=== PATIENT | female | born 1995 | race Caucasian/White ===

== ENCOUNTER 2021-11-07 13:18 | Emergency (ER) | payer MEDICAID, SELFPAY ==
[2021-11-07 13:19] VITALS: BP 138/118; PULSE 57; RESP 14; TEMP 36.6; O2SAT 99; BMI 36.2
--- NOTE | 2021-11-07 13:36 | CT_ITS ---
STUDY: CT ABDOMEN AND PELVIS WITH CONTRAST REASON FOR EXAM: Female, 26 years old. abd pain -- IV PO Contrast RADIATION DOSAGE (If Supplied By Facility): CTDIvol = ( 14.99 ) mGy, DLP = ( 1224.95 ) mGycm TECHNIQUE: Transaxial images were obtained from the dome of the diaphragm to the symphysis pubis without oral contrast. Oral and amp; IV Gastrografin and amp; 100mL Isovue-370 was administered. Sagittal and coronal images were reconstructed. Individualized dose optimization techniques were used for this CT. COMPARISON: None. FINDINGS: Lung bases clear. Unremarkable liver, pancreas, adrenals, and bilateral kidneys. Enlarged spleen measuring 15.3 cm in the greatest dimension. Status post cholecystectomy. Normal appendix. Moderate to large amount of retained stool in the distal colon and rectum with no evidence of bowel obstruction. No free air or free fluid. No adenopathy. Intact abdominal aorta and its major branches. Sections through the pelvis demonstrate apparent circumferential wall thickening of the incompletely distended urinary bladder. No definite adnexal mass. Questionable small ill-defined uterine fibroids. No acute osseous abnormality is seen. CT/Abdomen/Pelvis WITH Contrast IMPRESSION: Apparent circumferential wall thickening of the urinary bladder, likely due to incomplete distention. Acute infectious/inflammatory cystitis or infiltrative processes cannot be excluded. Normal appendix. No evidence of bowel obstruction. Status post cholecystectomy. No biliary dilatation. Electronically Signed: Ted Tyson MD at 15:54 EST Tel , Service support ,
[2021-11-07] MEDS: 0.9% Normal Saline 1,000 ML 1000 ML IV (14:13)
[2021-11-07] MEDS: Morphine 4 MG/ML Syringe IV (14:13)
[2021-11-07] MEDS: Ondansetron 4 MG/2 ML Vial IV (14:14)
[2021-11-07 14:24] LABS: Absolute Lymphocyte Count 2.85 X10^3/uL (0.83-4.51); Absolute Neutrophil Count 5.6 X10^3/uL (2.0-7.7); Basophil# 0.05 X10^3/uL; Basophil% 0.6 % (0-1); Eosinophil# 0.27 X10^3/uL; Hematocrit 43.1 % (37-47); Hemoglobin 14.6 g/dL (12.0-15.0); Lymphocyte # 2.85 X10^3/ul (0.83-4.51); Lymphocyte % 31.4 % (19-41); Mean Corp Hgb Conc 33.9 g/dL (32-36); Mean Corpuscular Hgb 29.8 pg (27.0-32.0); Mean Platelet Vol. 11.3 fl (6.2-12.0); Monocyte# 0.32 X10^3/uL; Monocyte% 3.5 % (0-10); NRBC Flagged by Analyzer 0 % (0-5); Neutrophil # 5.56 X10^3/uL (2.7-7.7); Neutrophil % 61.2 % (47-70); Platelet Count 324 K/mm3 (150-450); RBC Distribution Width CV 12.7 % (11.6-14.6); White Blood Count 9.1 K/mm3 (4.4-11.0)
[2021-11-07 14:37] LABS: AST(SGOT) 8 U/L (15-37); Alanine Aminotransfer ALT/SGPT 23 U/L (13-56); Albumin, Serum 3.8 g/dL (3.2-5.0); Alkaline Phosphatase 70 U/L (45-117); Anion Gap 7 (5-15); BUN 9 mg/dL (7-18); BUN/Creat Ratio 12.7 RATIO (10-20); Bilirubin, Direct 0.11 mg/dL (0.00-0.30); Calcium,Total 9.4 mg/dL (8.5-10.1); Chloride 105 mmol/L (98-107); Creatinine, Serum 0.71 mg/dL (0.55-1.02); EST Glomerular Filtration Rate 105 mL/min (>60); Est Glom Filt Rate - Afr Amer 127 mL/min (>60); Estimated Creatinine Clearance 116.77 ml/min; Glucose 92 mg/dL (74-106); Lipase 56 U/L (73-393); Potassium 3.9 mmol/L (3.5-5.1); Protein, Total 7.8 g/dL (6.4-8.2); Sodium Level 141 mmol/L (136-145)
[2021-11-07 15:07] LABS: Internal QC Validated? YES +Cl - CLEAR BKGD; Pregnancy, Serum, hCG Quali. NEGATIVE Negative
--- NOTE | 2021-11-07 15:08 | EX.ED.DYSGE1 ---
HPI History of Present Illness Chief Complaint: Abd Pain Informant: patient Onset/Context/Timing Onset: Days (5 days) Context: Gradual Onset Current Severity: Moderate Maximum Severity: Moderate Narrative Narrative: Patient presents with a 5-day history of abdominal pain. She points to the center of her abdomen and states it will sometimes radiate towards the right upper quadrant and then down the right side. She had chills noted on the first day of illness but none since. No measured fever. She denies congestion or cough. PFSH PFS Medical History (Updated 11/07/21 @ 17:[address] Adriana Salcedo MD) [facility] Home Medications dicyclomine 20 mg PO TID PRN #14 tab 11/07/21 [Rx Last Taken Unknown] ondansetron 4 mg PO Q8H PRN #10 tab 11/07/21 [Rx Last Taken Unknown] Allergy/AdvReac Type Severity Reaction Status Date / Time ibuprofen Allergy Anaphylaxis Verified 11/07/21 13:21 Surgical History (Updated 11/07/21 @ 15:[address] Adriana Salcedo MD) H/O tubal ligation Hx of cholecystectomy Social History Smoking Status: Current every day smoker tobacco type: cigarettes ROS ROS ED Constitutional Constitutional ED: Reports chills; Denies fever(s) Eyes Eyes: Denies change in vision ENT ENT ED: Denies sore throat Cardiovascular Cardiovascular: Denies chest pain Respiratory/Chest Respiratory/Chest: Denies cough or dyspnea Gastrointestinal Gastrointestinal: Reports abdominal pain, diarrhea, nausea and vomiting Genitourinary Genitourinary ED: Denies dysuria or hematuria Musculoskeletal Musculoskeletal: Denies back pain Integumentary Denies rash Neurologic Neurologic: Denies headache(s) or weakness Psychiatric Psychiatric: Denies anxiety or depression Allergic/Immunologic Allergic/Immunologic ED: Denies urticaria EXAM Physical Exam Const Vital Signs: 11/07/21 13:19 Temperature 97.9 F Temperature Source Temporal Pulse Rate 57 L Respiratory Rate 14 Blood Pressure 138/118 H Blood Pressure Mean 124 Pulse Ox 99 Oxygen Delivery Method Room Air Positive well nourished and well developed General Appearance ED: well developed HEENT Reports normocephalic and head/scalp atraumatic Eyes PERRL and EOMs intact bilaterally Neck supple Chest Wall inspection of chest normal and palpation of chest normal Resp normal respiratory effort and clear to auscultation bilaterally Cardio regular rate and regular rhythm GI Palpation: soft and tender other (Diffuse abdominal tenderness to palpation. No guarding or rebound. Hypoactive bowel sounds.) Extremity normal to inspection Neuro oriented x3 and no sensory deficits noted Sensorium / Orientation: alert Motor Exam: strength 5/5 throughout Psych mental status grossly normal Skin no rashes or lesions noted MDM MDM MDM Narrative Medical decision making narrative: Patient was given morphine and Zofran for pain. Lab work, urinalysis, CT abdomen pelvis obtained. Lab Data Attestation: I reviewed the patient's lab results. Labs: Laboratory Results - last 24 hr 11/07/21 11/07/21 11/07/21 14:10 14:10 14:10 WBC 9.1 RBC 4.90 Hgb 14.6 Hct 43.1 MCV 88.0 MCH 29.8 MCHC 33.9 RDW Std Deviation 41.0 RDW Coeff of [place] 12.7 Plt Count 324 MPV 11.3 Immature Gran % (Auto) 0.300 Neut % (Auto) 61.2 Lymph % (Auto) 31.4 [place] % (Auto) 3.5 Eos % (Auto) 3.0 Baso % (Auto) 0.6 Absolute Neuts (auto) 5.6 Absolute Lymphs (auto) 2.85 Nucleated RBC % 0 Sodium 141 Potassium 3.9 Chloride 105 Carbon Dioxide 29.0 Anion Gap 7 BUN 9 Creatinine 0.71 Estim Creat Clear Calc 116.77 Est GFR (MDRD) Af Amer 127 Est GFR (MDRD) Non-Af 105 BUN/Creatinine Ratio 12.7 Glucose 92 Calcium 9.4 Total Bilirubin 0.30 Direct Bilirubin 0.11 AST 8 L ALT 23 Alkaline Phosphatase 70 Total Protein 7.8 Albumin 3.8 Globulin 4.0 Lipase 56 L Serum , Qual NEGATIVE Urine Color Urine Clarity Urine pH Ur Specific [place] Urine Protein Urine Glucose (UA) Urine Ketones Urine Occult Blood Urine Nitrite Urine Bilirubin Urine Urobilinogen Ur Leukocyte Esterase Urine RBC Urine WBC Ur Squamous Epith Cells Urine Bacteria Urine Mucus 11/07/21 16:40 WBC RBC Hgb Hct MCV MCH MCHC RDW Std Deviation RDW Coeff of [place] Plt Count MPV Immature Gran % (Auto) Neut % (Auto) Lymph % (Auto) [place] % (Auto) Eos % (Auto) Baso % (Auto) Absolute Neuts (auto) Absolute Lymphs (auto) Nucleated RBC % Sodium Potassium Chloride Carbon Dioxide Anion Gap BUN Creatinine Estim Creat Clear Calc Est GFR (MDRD) Af Amer Est GFR (MDRD) Non-Af BUN/Creatinine Ratio Glucose Calcium Total Bilirubin Direct Bilirubin AST ALT Alkaline Phosphatase Total Protein Albumin Globulin Lipase Serum , Qual Urine Color Yellow Urine Clarity Clear Urine pH 7.0 Ur Specific [place] 1.030 Urine Protein Negative Urine Glucose (UA) Normal Urine Ketones Negative Urine Occult Blood 150 H Urine Nitrite Negative Urine Bilirubin Negative Urine Urobilinogen Normal Ur Leukocyte Esterase Negative Urine RBC 5-10 SEEN Urine WBC 0 SEEN Ur Squamous Epith Cells 0 SEEN Urine Bacteria 0 SEEN Urine Mucus 0 SEEN Radiography Diagnostic Testing: Clinical Impression(s) from Imaging Studies Abdomen/Pelvis CT 11/07/21 13:36 IMPRESSION: Apparent circumferential wall thickening of the urinary bladder, likely due to incomplete distention. Acute infectious/inflammatory cystitis or infiltrative processes cannot be excluded. Normal appendix. No evidence of bowel obstruction. Status post cholecystectomy. No biliary dilatation. Electronically Signed: Ted Tyson MD at 15:54 EST Tel , Service support , Treatment and Re-Evaluation Comments:: On repeat evaluation patient's pain is improved. Lab work is unremarkable. Urinalysis shows mild blood but no sign of infection. She states her period is just ending. CT scan reveals some wall thickening of the bladder, likely due to incomplete distention. Normal appendix is noted. No evidence of bowel obstruction. Test results discussed with the patient. She will be given Bentyl and Zofran for home. Return instructions provided. Discharge Plan Triage Chief Complaint: Abd Pain ED Provider: Adriana Salcedo Dx/Rx/DC Orders Clinical Impression: Abdominal pain Instructions: ED Abdominal Pain Unkn Cause Fem Prescriptions: New dicyclomine 20 mg tablet 20 mg PO TID PRN (Reason: abdominal cramping) Qty: 14 RF: 0 ondansetron 4 mg tablet,disintegrating 4 mg PO Q8H PRN (Reason: nausea and vomiting) Qty: 10 RF: 0 Primary Care Provider: Care Physician,No Primary Referrals: Errol Langston MD [STAFF PHYSICIAN] - 1-2 Weeks Care Physician,No Primary [Primary Care Provider] - Disposition Disposition: Home, Self Care
[2021-11-07 16:45] LABS: Bacteria 0 SEEN /hpf (None Seen); Mucous, Urine 0 SEEN /hpf (<or=2+); Squamous Epithelial Cells - UA 0 SEEN /hpf (5-10); White Blood Cells 0 SEEN /hpf (0-5)
[2021-11-07 16:57] LABS: Color, Urine Yellow (Yellow); Glucose, Dipstick Normal (Normal); Ketone-Dipstick Negative (Negative); Leukocyte Esterase-Dipstick Negative /ul (Negative); Nitrite-Dipstick Negative (Negative); Occult Blood-Urine 150 /ul (Negative); Protein-Dipstick Negative (Negative); Urine Bilirubin Dipstick Negative (Negative); Urine Clarity Clear (Clear); Urine Urobilinogen Normal (Normal)
[2021-11-07 17:05] LABS: Red Blood Cells-Urine 5-10 SEEN /hpf (0-5)
[2021-11-07 17:33] VITALS: PULSE 62; RESP 17; O2SAT 97
== END 2021-11-07 17:34 | disposition home or self-care (01) ==
PROVIDERS: Emergency Provider Emergency Medicine; Visit Provider Emergency Medicine
DX: R10.9 Unspecified abdominal pain (principal); R68.83 Chills (without fever); R11.2 Nausea with vomiting, unspecified; R19.7 Diarrhea, unspecified; Z87.19 Personal history of other diseases of the digestive system; Z90.49 Acquired absence of other specified parts of digestive tract; F17.210 Nicotine dependence, cigarettes, uncomplicated
CPT/HCPCS: 74177; 80048; 80076; 81001; 83690; 84703; 85025; 96361; 96374; 96375; 99283; J7030; Q9967; A4216; J2405

== ENCOUNTER 2021-11-14 09:12 | Day surgery (SDC) | payer MEDICAID, SELFPAY ==
[2021-11-14] VITALS (9 sets, daily range): BP systolic 94–130; BP diastolic 68–93; PULSE 80–123; RESP 16–18; TEMP 36.5–36.7; O2SAT 96–100; BMI 36.0
--- NOTE | 2021-11-14 09:26 | EDS_ITS ---
HPI History of Present Illness Chief Complaint: Other, Pain/Inj Detail of Chief Complaint: Pain, redness, swelling to left breast x2 weeks Informant: patient Narrative Narrative: Patient presents with redness and swelling to left breast for several weeks. Patient was seen at urgent care yesterday and started on antibiotics and referred to general surgery. Patient does not know who she was referred to or what antibiotic she was started on. Patient complains of pain and she has had some fever and chills last week. Patient otherwise has no significant medical history. No history of diabetes. She denies trauma to her breast. [facility] Medical History (Updated 11/14/21 @ 10:[address] Aries Gordon, DO) [facility] Home Medications dicyclomine 20 mg PO TID PRN #14 tab 11/07/21 [Rx Last Taken Unknown] ondansetron 4 mg PO Q8H PRN #10 tab 11/07/21 [Rx Last Taken Unknown] Allergy/AdvReac Type Severity Reaction Status Date / Time ibuprofen Allergy Anaphylaxis Verified 11/14/21 09:15 Surgical History H/O tubal ligation Hx of cholecystectomy Social History Smoking Status: Current every day smoker tobacco type: cigarettes ROS ROS ED ROS Narrative Redness and swelling to left breast Constitutional Constitutional ED: Reports systems reviewed and no addt'l complaints, except as documented, chills and fever(s); Denies body ache(s) or change in weight Eyes Eyes: Denies acute decrease in peripheral vision, change in vision, double vision or loss of vision ENT ENT ED: Reports none; Denies ear pain, lip swelling, loss taste/smell, neck pain, otalgia or sore throat Cardiovascular Cardiovascular: Reports none; Denies abdominal pain, chest pain with activity, leg edema, lightheadedness, palpitations, rapid heart rate or syncope Respiratory/Chest Respiratory/Chest: Reports none; Denies change in mental status, dry cough, dyspnea, hemoptysis, shortness of breath at rest or shortness of breath with exertion Gastrointestinal Gastrointestinal: Reports none; Denies abdominal pain, change in stool character, diarrhea, hematemesis, hematochezia, melena, rectal bleeding or vomiting Genitourinary Genitourinary ED: Reports none; Denies abdominal discomfort, anuria, dysuria, genital pain or polyuria Musculoskeletal Musculoskeletal: Reports none; Denies arthralgias, back pain, difficulty walking, extremity pain, muscle weakness or myalgias Integumentary Reports none; Denies abscess or rash Neurologic Neurologic: Reports none; Denies abnormal gait, confusion, focal weakness, frequent falls, headache(s), loss of vision, numbness, paresthesias, radicular pain, vertigo or weakness Psychiatric Psychiatric: Reports systems reviewed and no addt'l complaints, except as documented and none; Denies behavioral changes, confusion, difficulty concentrating, hallucinations, suicidal ideation, tactile hallucinations or visual hallucinations Endocrine Endocrinology: Denies none, cold intolerance, excessive sweating, fatigue or heat intolerance Hematologic/Lymphatic Hematologic/Lymphatic: Reports none; Denies anemia, easy bleeding or easy bruising Allergic/Immunologic Allergic/Immunologic ED: Denies as per HPI, none, lip swelling, mouth swelling, throat swelling, tongue swelling or hives EXAM Physical Exam Const Vital Signs: 11/14/21 09:13 Temperature 98.0 F Temperature Source Temporal Pulse Rate 123 H Respiratory Rate 16 Blood Pressure 114/79 Blood Pressure Mean 90 Pulse Ox 98 Oxygen Delivery Method Room Air Positive well nourished and well developed General Appearance ED: well developed and NAD HEENT Reports TM's clear and moist mucous membranes normocephalic and atraumatic; Negative for trauma or tenderness Tympanic Membrane ED: Yes TM's clear Eyes PERRL and EOMs intact bilaterally General Eye ED: Negative for pale conjunctiva or scleral icterus Neck no lymphadenopathy, supple and no JVD General: Negative for tenderness Chest Wall inspection of chest normal and palpation of chest normal Chest Narrative: Evaluation of the left breast reveal cellulitic changes diffusely with soft tissue swelling induration and some mild fluctuance to the medial aspect of the areola and nipple. Area is tender to palpation. Chest: Negative for tenderness Resp normal respiratory effort and clear to auscultation bilaterally Effort and Inspection: Negative for respiratory distress or pain with movement Auscultation: Negative for rhonchi, wheezes or diminished lung sounds Cardio regular rate, regular rhythm, S1 normal heart sound, S2 normal heart sound and no murmurs Peripheral Pulses: pulses 2+ throughout GI normal to inspection, nondistended, normoactive bowel sounds, soft to palpation, non-tender, non-distended and no masses Back/Spine no CVA tenderness and no thoracic nor lumbar tenderness Extremity normal to inspection General Extremety ED: Negative for edema General Extremity: Negative for edema Neuro oriented x3, CN's II-XII intact bilaterally, no sensory deficits noted and gait normal Sensorium / Orientation: awake, alert, oriented to person, oriented to place and oriented to time Motor Exam: strength 5/5 throughout and strength abnormal Psych mental status grossly normal Skin no rashes or lesions noted and no wounds MDM MDM MDM Narrative Medical decision making narrative: IV line established on arrival. Patient was given Zosyn IV. Case was discussed with general surgeon on-call Dr. Rueda who will evaluate patient in department. After evaluation Dr. Rueda wanted to take patient to the OR for incision and drainage. Lab Data Attestation: I reviewed the patient's lab results. Labs: Laboratory Results - last 24 hr 11/14/21 11/14/21 11/14/21 09:40 09:40 09:40 WBC 11.0 RBC 4.88 Hgb 14.2 Hct 43.1 MCV 88.3 MCH 29.1 MCHC 32.9 RDW Std Deviation 41.8 RDW Coeff of [place] 12.9 Plt Count 309 MPV 11.2 Immature Gran % (Auto) 0.200 Neut % (Auto) 74.6 H Lymph % (Auto) 19.6 [place] % (Auto) 3.8 Eos % (Auto) 1.4 Baso % (Auto) 0.4 Absolute Neuts (auto) 8.2 H Absolute Lymphs (auto) 2.15 Nucleated RBC % 0 Sodium 139 Potassium 3.8 Chloride 110 H Carbon Dioxide 23.0 Anion Gap 6 BUN 9 Creatinine 0.77 Estim Creat Clear Calc 107.67 Est GFR (MDRD) Af Amer 116 Est GFR (MDRD) Non-Af 96 BUN/Creatinine Ratio 11.7 Glucose 95 Lactic Acid 0.8 Calcium 9.2 Discharge Plan Triage Chief Complaint: Other, Pain/Inj ED Provider: Aries Gordon Dx/Rx/DC Orders Clinical Impression: Abscess of breast, left Prescriptions: No Action dicyclomine 20 mg tablet 20 mg PO TID PRN (Reason: abdominal cramping) Qty: 14 RF: 0 ondansetron 4 mg tablet,disintegrating 4 mg PO Q8H PRN (Reason: nausea and vomiting) Qty: 10 RF: 0 Primary Care Provider: Care Physician,No Primary Referrals: Care Physician,No Primary [Primary Care Provider] - Disposition Disposition: Acute Care Hospital [facility]
[2021-11-14 09:48] LABS: Absolute Lymphocyte Count 2.15 X10^3/uL (0.83-4.51); Absolute Neutrophil Count 8.2 X10^3/uL (2.0-7.7); Basophil# 0.04 X10^3/uL; Basophil% 0.4 % (0-1); Eosinophil# 0.15 X10^3/uL; Eosinophils% 1.4 % (0-5); Hematocrit 43.1 % (37-47); Hemoglobin 14.2 g/dL (12.0-15.0); Lymphocyte # 2.15 X10^3/ul (0.83-4.51); Lymphocyte % 19.6 % (19-41); Mean Corp Hgb Conc 32.9 g/dL (32-36); Mean Corpuscular Hgb 29.1 pg (27.0-32.0); Mean Corpuscular Volume 88.3 fL (81-99); Mean Platelet Vol. 11.2 fl (6.2-12.0); Monocyte# 0.42 X10^3/uL; Monocyte% 3.8 % (0-10); NRBC Flagged by Analyzer 0 % (0-5); Neutrophil # 8.21 X10^3/uL (2.7-7.7); Neutrophil % 74.6 % (47-70); Platelet Count 309 K/mm3 (150-450); RBC Distribution Width CV 12.9 % (11.6-14.6); RBC Distribution Width SD 41.8 fl (35.1-43.9); Red Blood Count 4.88 M/mm3 (4.2-5.4)
[2021-11-14] MEDS: Morphine 4 MG/ML Syringe IV (09:50)
[2021-11-14] MEDS: Ondansetron 4 MG/2 ML Vial IV (09:50)
[2021-11-14 10:00] LABS: Anion Gap 6 (5-15); BUN 9 mg/dL (7-18); BUN/Creat Ratio 11.7 RATIO (10-20); Calcium,Total 9.2 mg/dL (8.5-10.1); Chloride 110 mmol/L (98-107); Creatinine, Serum 0.77 mg/dL (0.55-1.02); EST Glomerular Filtration Rate 96 mL/min (>60); Est Glom Filt Rate - Afr Amer 116 mL/min (>60); Estimated Creatinine Clearance 107.67 ml/min; Glucose 95 mg/dL (74-106); Potassium 3.8 mmol/L (3.5-5.1); Sodium Level 139 mmol/L (136-145)
[2021-11-14 10:15] LABS: Lactic Acid 0.8 mmol/L (0.4-1.9)
--- NOTE | 2021-11-14 10:29 | CON.PCM.SX_ITS ---
Assessment & Plan Assessment/Plan (1) Abscess of breast, left: PLAN: Plan is to perform an incision and drainage of left breast abscess. I have counseled the patient as to the risks of the procedure, including but not limited to: infection, bleeding, injury to any blood vessels/nerves, complications of anesthesia, etc. The patient verbalizes understanding. HPI Consult Data Date of Consult: 11/14/21 HPI Narrative HPI Narrative: FRANCY DEE, is a 26 F who presents with redness and swelling to left breast for several weeks. Patient was seen at urgent care yesterday and started on antibiotics and referred to general surgery. Patient does not know who she was referred to or what antibiotic she was started on. Patient complains of pain and she has had some fever and chills last week. Patient otherwise has no significant medical history. No history of diabetes. She denies trauma to her breast. [facility] Medical History [facility] Home Medications dicyclomine 20 mg PO TID PRN #14 tab 11/07/21 [Rx Last Taken Unknown] ondansetron 4 mg PO Q8H PRN #10 tab 11/07/21 [Rx Last Taken Unknown] Allergy/AdvReac Type Severity Reaction Status Date / Time ibuprofen Allergy Anaphylaxis Verified 11/14/21 09:15 Surgical History H/O tubal ligation Hx of cholecystectomy Social History Smoking Status: Current every day smoker tobacco type: cigarettes ROS Cardiovascular Cardiovascular: Denies chest pain or chest pain at rest Respiratory/Chest Respiratory/Chest: Denies cough or dyspnea Gastrointestinal Gastrointestinal: Denies abdominal pain Physical Exam Const alert and oriented x3 General Appearance: cooperative HEENT normocephalic and head/scalp atraumatic Eyes PERRL and EOMs intact bilaterally Resp clear to auscultation bilaterally Cardio Rate: regular rate Skin Skin Narrative: Significant redness in the left breast. Mostly on the medial aspect exquisitely tender to touch Lab / Micro Data Result Diagrams: 11/14/21 09:40 11/14/21 09:40 Labs: Laboratory Results - last 24 hr 11/14/21 09:40: WBC 11.0, RBC 4.88, Hgb 14.2, Hct 43.1, MCV 88.3, MCH 29.1, MCHC 32.9, RDW Std Deviation 41.8, RDW Coeff of [place] 12.9, Plt Count 309, MPV 11.2, Im mature Gran % (Auto) 0.200, Neut % (Auto) 74.6 H, Lymph % (Auto) 19.6, [place] % (Auto) 3.8, Eos % (Auto) 1.4, Baso % (Auto) 0.4, Absolute Neuts (auto) 8.2 H, Absolute Lymphs (auto) 2.15, Nucleated RBC % 0 11/14/21 09:40: Sodium 139, Potassium 3.8, Chloride 110 H, Carbon Dioxide 23.0, Anion Gap 6, BUN 9, Creatinine 0.77, Estim Creat Clear Calc 107.67, Est GFR (MDRD) Af Amer 116, Est GFR (MDRD) Non-Af 96, BUN/Creatinine Ratio 11.7, Glucose 95, Calcium 9.2 11/14/21 09:40: Lactic Acid 0.8
--- NOTE | 2021-11-14 10:31 | NURSING ---
SURGERY I AND D LEFT BREAST ABSCESS CIARAN
[2021-11-14 10:53] LABS: Internal QC Validated? YES +Cl - CLEAR BKGD; Pregnancy, Serum, hCG Quali. NEGATIVE Negative
[2021-11-14] MEDS: BUPIVACAINE LIPOSOME/PF 20 ML VIAL OPERA.SITE (11:40)
--- NOTE | 2021-11-14 11:54 | PCM.OPRPT ---
Problems Associated Problem List Diagnoses (1) Abscess of breast, left: Report of Operation Date of Procedure: 11/14/21 Pre-Operative Diagnosis: Left breast abscess Post-Operative Diagnosis: Same Surgery/Procedure Performed:: Incision and drainage of left breast abscess Surgeon: Alfie Rueda deicer repairer pneumatic: None Type of Anesthesia: General Anesthesiologist: Simran Rojas Specimen's removed: Left breast tissue Estimated Blood Loss (mL): < 25 cc Description of Procedure: Patient was brought into the operating room. Placed in the supine position. Under excellent general anesthetic left breast was sterilely prepped and draped in usual fashion. Patient had a previous circumareolar incision on the medial aspect I opened this back up and cut out the scar. Her abscess was primarily directly under the nipple areolar complex I opened this up obtain cultures and sensitivity of the area. Irrigated it out he is electrocautery for good pneumostasis. I packed the area with a Betadine soaked 4 x 4. Sterile dressings were applied and the patient tolerated the procedure well. Admit VTE Documentation VTE Present on Admission: No VTE Mechan Device Prophylaxis: SCD's VTE Pharm Prophylaxis ordered?: No Reason prophylaxis not ordered:: Procedure Not Indicated
--- NOTE | 2021-11-14 11:57 | EX.PCM.DISCH ---
Discharge Instructions Procedure General Surgery Diet Discharge Diet: Light diet - advance as tolerated (If you have questions about your diet instructions, please talk to your doctor.) Activity Discharge Activity: May Not Drive (for 1 week or while taking narcotic pain medicine.) May shower in (days): 1 Lifting Restrictions: 10 pounds Dressing / Incision Call your doctor if your incision/area has: Continuous Slow Oozing, Sudden Increased Bleeding, Increased Pain/ Swelling, Increased Redness and Foul Smelling Discharge Call your doctor if you observe: Fever of 101 or Higher Suture Line Care: Avoid Pulling/Pushing and Avoid Pinching/Bending Additional Dressing/Incision Instructions:: Change or remove dressing in 4 days. Leave steri-strips in place for 1 week. Follow Up Care Please Follow Up With: Rosita Reyes PA-C When: Call office to schedule an appointment to be seen in about 10 days. Test Results: Test results from this visit will be discussed in further detail at your follow-up appointment, if applicable. Discharge Plan Admission Attending Provider: Alfie Rueda Primary Care Provider: Care Physician,Celia Primary Discharge Orders/Prescriptions Prescriptions: New oxycodone-acetaminophen [Percocet] 5-325 mg tablet 1 tab PO Q4H PRN (Reason: pain) 5 Days Qty: 20 RF: 0 No Action dicyclomine 20 mg tablet 20 mg PO TID PRN (Reason: abdominal cramping) Qty: 14 RF: 0 ondansetron 4 mg tablet,disintegrating 4 mg PO Q8H PRN (Reason: nausea and vomiting) Qty: 10 RF: 0 Referrals / Follow Up: Care Physician,Celia Primary [Primary Care Provider] - Rosita Reyes PA-C [PHYSICIAN QUILL CLEANING MACHINE OPERATOR] - (Should call tomorrow for a follow-up visit tomorrow for packing removal.) Disposition Discharge Orders: Discharge Patient (Routine); Ordered 11/14/21 Ordered By: Dr. Alfie Rueda
== END 2021-11-14 23:59 | disposition home or self-care (01) ==
LOC: ED 10:27 → SDC 10:29 → AC 10:30
PROVIDERS: Emergency Provider Emergency Medicine; Visit Provider Surgery
PROC: (CPT 19020; principal; 2021-11-14 11:00)
DX: N61.1 Abscess of the breast and nipple (principal); F17.210 Nicotine dependence, cigarettes, uncomplicated
CPT/HCPCS: 19020; 00400; 80048; 83605; 84703; 85025; 87070; 87075; 87077; 87205; 87426; 99284; J7030; A4216; J0330; J2405

== ENCOUNTER 2022-06-23 19:20 | Emergency (ER) | payer MEDICAID, SELFPAY ==
[2022-06-23 19:20] VITALS: BP 142/75; PULSE 89; RESP 16; TEMP 36.7; O2SAT 99; BMI 36.0
[2022-06-23 19:22] VITALS: BP 142/75; PULSE 89; RESP 16; TEMP 36.7; O2SAT 99
[2022-06-23 19:45] LABS: Mucous, Urine 0 SEEN /hpf (<or=2+); White Blood Cells 0 SEEN /hpf (0-5)
[2022-06-23 19:47] LABS: Color, Urine Yellow (Yellow); Glucose, Dipstick Normal (Normal); Ketone-Dipstick Negative (Negative); Leukocyte Esterase-Dipstick Negative /ul (Negative); Nitrite-Dipstick Negative (Negative); Occult Blood-Urine 250 /ul (Negative); Protein-Dipstick 15 mg/dl (Negative); Specific Gravity, Urine 1.015 (1.002-1.030); Urine Bilirubin Dipstick Negative (Negative); Urine Clarity Clear (Clear); Urine Urobilinogen Normal (Normal); Urine pH 6.5 (5.0 - 8.0)
[2022-06-23 19:57] LABS: Red Blood Cells-Urine 5-10 SEEN /hpf (0-5)
[2022-06-23 19:58] LABS: Bacteria 1+ /hpf (None Seen); Squamous Epithelial Cells - UA 0-5 SEEN /hpf (5-10)
--- NOTE | 2022-06-23 20:16 | CT_ITS ---
STUDY: CT Abdomen And Pelvis W/ Contrast Injection 06/23/2022 9:32 PM REASON FOR EXAM: Female, 27 years old. ABDOMINAL PAIN pain TECHNIQUE: Transaxial images were obtained without oral contrast, and withIV 100mL Isovue-370 intravenous contrast. Individualized dose optimization techniques were used for this CT. COMPARISON: 11/07/2021 FINDINGS: The visualized lung bases are unremarkable. The visualized portions of the heart are within normal limits. Unremarkable liver. There are surgical clips in the gallbladder fossa consistent with a prior cholecystectomy. There is mild splenomegaly. Unremarkable pancreas. Unremarkable bilateral adrenal glands. No acute findings of the right kidney. No acute findings of the left kidney. Unremarkable visualized stomach. Unremarkable small intestine. Unremarkable colon. The appendix is visualized and appears unremarkable. There are no acute findings of the abdominal aorta. Unremarkable inferior vena cava. Subcentimeter mesenteric lymph nodes. Unremarkable urinary bladder. Normal visualized uterus. There is a linear heterogeneous density in the vagina. This a tampon. Inguinal lymph nodes. There is an umbilical hernia containing fat. Unremarkable osseous structures. CT/Abdomen/Pelvis W IV Cont ONLY IMPRESSION: (NOT LISTED IN ORDER OF SIGNIFICANCE) There are no acute findings. There is mild splenomegaly. Other findings as above. Electronically Signed: Oleksandr Yanez MD at 21:34 EDT ,
[2022-06-23] MEDS: Ondansetron 4 MG/2 ML Vial IV (20:27)
[2022-06-23] MEDS: Morphine 4 MG/ML Syringe IV (20:27)
[2022-06-23] MEDS: 0.9% Normal Saline 1,000 ML 1000 ML IV (20:27)
[2022-06-23 20:34] LABS: Absolute Lymphocyte Count 1.18 X10^3/uL (0.83-4.51); Absolute Neutrophil Count 3.4 X10^3/uL (2.0-7.7); Basophil# 0.05 X10^3/uL; Eosinophil# 0.15 X10^3/uL; Eosinophils% 2.9 % (0-5); Hematocrit 38.5 % (37-47); Hemoglobin 13.1 g/dL (12.0-15.0); Lymphocyte # 1.18 X10^3/ul (0.83-4.51); Lymphocyte % 22.8 % (19-41); Mean Corpuscular Hgb 30.3 pg (27.0-32.0); Mean Corpuscular Volume 88.9 fL (81-99); Mean Platelet Vol. 11.9 fl (6.2-12.0); Monocyte# 0.35 X10^3/uL; Monocyte% 6.8 % (0-10); NRBC Flagged by Analyzer 0 % (0-5); Neutrophil # 3.42 X10^3/uL (2.7-7.7); Neutrophil % 66.1 % (47-70); Platelet Count 277 K/mm3 (150-450); RBC Distribution Width CV 12.5 % (11.6-14.6); RBC Distribution Width SD 40.8 fl (35.1-43.9); Red Blood Count 4.33 M/mm3 (4.2-5.4); White Blood Count 5.2 K/mm3 (4.4-11.0)
--- NOTE | 2022-06-23 20:36 | EDS_ITS ---
HPI HPI - GI History of Present Illness Chief Complaint: Abd Pain Informant: patient Narrative Narrative: Patient presents with primary complaint of epigastric pain going on for about 6 days. She sometimes belches and gets a sour taste in her mouth. But she denies chest pain. She states she does have GERD but does not take anything for it. She does not know if she has had symptoms like this. She also denied ever having any surgeries. When I looked at her abdomen I asked what her scars were for and found out that they were for prior cholecystectomy and tubal ligation. She states they took out gallstones but did not take her gallbladder but she is not sure. She is not sure when she had the surgery. She denies fevers and chills. She has had some nausea but no vomiting. Bowel habits have been normal. Urine is normal for her. She states she never fully empties her bladder but that is just because she works all the time and she is in a hurry. There is no dysuria or change in color or odor. The symptoms are chronic and unchanged. She is on her menstrual cycle today and it started normal timing. She has no pelvic pain. No back pain. Nothing consistently makes her pain better and worse but she thinks eating might bother it a little bit. [facility] Medical History [place] Home Medications esomeprazole magnesium 20 mg capsule,delayed release (Nexium) 20 mg PO DAILY #30 caps 06/23/22 [Rx Last Taken Unknown] ondansetron 4 mg disintegrating tablet 4 mg PO Q8H PRN nausea and vomiting #10 tabs 06/23/22 [Rx Last Taken Unknown] Allergy/AdvReac Type Severity Reaction Status Date / Time ibuprofen Allergy Anaphylaxis Verified 06/23/22 19:22 Surgical History H/O tubal ligation Hx of cholecystectomy Social History Smoking Status: Current every day smoker tobacco type: cigarettes ROS ROS ED Constitutional Constitutional ED: Denies chills, fever(s) or subjective ENT ENT ED: Denies rhinorrhea or sore throat Cardiovascular Cardiovascular: Denies chest pain or palpitations Respiratory/Chest Respiratory/Chest: Denies cough or dyspnea Gastrointestinal Gastrointestinal: Reports abdominal pain, nausea and vomiting; Denies constipation, diarrhea or melena Genitourinary Genitourinary ED: Reports other Details: See history of present illness. ; Denies dysuria, hematuria or urinary frequency Musculoskeletal Musculoskeletal: Denies back pain Integumentary Denies rash Neurologic Neurologic: Denies headache(s), paresthesias or weakness Psychiatric Psychiatric: Denies anxiety Endocrine Endocrinology: Denies polydipsia or polyuria Allergic/Immunologic Allergic/Immunologic ED: Denies urticaria EXAM Physical Exam Const Vital Signs: 06/23/22 19:20 06/23/22 19:22 06/23/22 21:03 Temperature 98.1 F 98.1 F Temperature Source Temporal Temporal Pulse Rate 89 89 Respiratory Rate 16 16 18 Blood Pressure 142/75 H 142/75 H Blood Pressure Mean 97 97 Pulse Ox 99 99 Oxygen Delivery Method Room Air Room Air Room Air Positive well nourished and well developed General Appearance ED: well developed and NAD; Negative for pallor HEENT Reports moist mucous membranes; Denies dry mucous membranes normocephalic Mouth ED: No dry mucous membranes Mouth: No dry mucous membranes Eyes General Eye ED: Negative for pale conjunctiva or scleral icterus Resp normal respiratory effort and clear to auscultation bilaterally Auscultation: Negative for rales, rhonchi or wheezes Cardio regular rate and regular rhythm GI GI Narrative: Abdomen has normal bowel sounds. She is soft. There is mild epigastric tenderness but no rebound or guarding. No hernia in the abdomen. No rashes. Back/Spine no CVA tenderness Extremity full ROM General Extremety ED: Negative for edema or tenderness General Extremity: Negative for edema Neuro Sensorium / Orientation: alert Psych mental status grossly normal Skin no wounds General Skin Exam: Negative for jaundice or pallor MDM MDM MDM Narrative Medical decision making narrative: Patient CBC is normal. Electrolytes liver function test are normal. Urine shows no white cells. No convincing evidence of infection. is negative. CT shows no acute findings. There is mild splenomegaly. Patient has mostly upper abdominal pain. She has a history of GERD. I will write for some PPI medication. I will write for a few Zofran as she has had nausea even though she has not had vomiting. We will refer her to primary physician and we discussed reasons to return. Lab Data Attestation: I reviewed the patient's lab results. Labs: Laboratory Results - last 24 hr 06/23/22 06/23/22 06/23/22 19:35 19:48 19:48 WBC 5.2 RBC 4.33 Hgb 13.1 Hct 38.5 MCV 88.9 MCH 30.3 MCHC 34.0 RDW Std Deviation 40.8 RDW Coeff of [place] 12.5 Plt Count 277 MPV 11.9 Immature Gran % (Auto) 0.400 Neut % (Auto) 66.1 Lymph % (Auto) 22.8 [place] % (Auto) 6.8 Eos % (Auto) 2.9 Baso % (Auto) 1.0 Absolute Neuts (auto) 3.4 Absolute Lymphs (auto) 1.18 Nucleated RBC % 0 Sodium 142 Potassium 3.7 Chloride 107 Carbon Dioxide 28.0 Anion Gap 7 BUN 8 Creatinine 0.78 Estim Creat Clear Calc 105.35 Est GFR (MDRD) Af Amer 114 Est GFR (MDRD) Non-Af 94 BUN/Creatinine Ratio 10.2 Glucose 85 Calcium 9.3 Total Bilirubin 0.30 AST 9 L ALT 22 Alkaline Phosphatase 74 Total Protein 7.5 Albumin 3.6 Globulin 3.9 Albumin/Globulin Ratio 0.9 Serum , Qual Urine Color Yellow Urine Clarity Clear Urine pH 6.5 Ur Specific [place] 1.015 Urine Protein 15 H Urine Glucose (UA) Normal Urine Ketones Negative Urine Occult Blood 250 H Urine Nitrite Negative Urine Bilirubin Negative Urine Urobilinogen Normal Ur Leukocyte Esterase Negative Urine RBC 5-10 SEEN Urine WBC 0 SEEN Ur Squamous Epith Cells 0-5 SEEN Urine Bacteria 1+ Urine Mucus 0 SEEN 06/23/22 19:48 WBC RBC Hgb Hct MCV MCH MCHC RDW Std Deviation RDW Coeff of [place] Plt Count MPV Immature Gran % (Auto) Neut % (Auto) Lymph % (Auto) [place] % (Auto) Eos % (Auto) Baso % (Auto) Absolute Neuts (auto) Absolute Lymphs (auto) Nucleated RBC % Sodium Potassium Chloride Carbon Dioxide Anion Gap BUN Creatinine Estim Creat Clear Calc Est GFR (MDRD) Af Amer Est GFR (MDRD) Non-Af BUN/Creatinine Ratio Glucose Calcium Total Bilirubin AST ALT Alkaline Phosphatase Total Protein Albumin Globulin Albumin/Globulin Ratio Serum , Qual NEGATIVE Urine Color Urine Clarity Urine pH Ur Specific [place] Urine Protein Urine Glucose (UA) Urine Ketones Urine Occult Blood Urine Nitrite Urine Bilirubin Urine Urobilinogen Ur Leukocyte Esterase Urine RBC Urine WBC Ur Squamous Epith Cells Urine Bacteria Urine Mucus Radiography Diagnostic Testing: Clinical Impression(s) from Imaging Studies Abdomen/Pelvis CT 06/23/22 20:16 IMPRESSION: (NOT LISTED IN ORDER OF SIGNIFICANCE) There are no acute findings. There is mild splenomegaly. Other findings as above. Electronically Signed: Oleksandr Yanez MD at 21:34 EDT Reading Location ID and State: [facility] / [place] , Service support , Discharge Plan Triage Chief Complaint: Abd Pain ED Provider: Francisco Lord Dx/Rx/DC Orders Clinical Impression: Abdominal pain, Gastroesophageal reflux disease Instructions: ED Abdominal Pain Unkn Cause Fem Prescriptions: New ondansetron 4 mg tablet,disintegrating 4 mg PO Q8H PRN (Reason: nausea and vomiting) Qty: 10 0RF esomeprazole magnesium [Nexium] 20 mg capsule,delayed release(DR/EC) 20 mg PO DAILY Qty: 30 0RF Primary Care Provider: Care Physician,No Primary Referrals: Terry Zaragoza MD [Med Staff - Active Staff] - 3-5 Days if not improving Care Physician,No Primary [Primary Care Provider] - Disposition Disposition: Home, Self Care
[2022-06-23 20:45] LABS: Internal QC Validated? YES +Cl - CLEAR BKGD; Pregnancy, Serum, hCG Quali. NEGATIVE Negative
[2022-06-23 20:50] LABS: ALB/GLOB Ratio 0.9 RATIO (0.9-2.4); AST(SGOT) 9 U/L (15-37); Alanine Aminotransfer ALT/SGPT 22 U/L (13-56); Albumin, Serum 3.6 g/dL (3.2-5.0); Alkaline Phosphatase 74 U/L (45-117); Anion Gap 7 (5-15); BUN 8 mg/dL (7-18); BUN/Creat Ratio 10.2 RATIO (10-20); Calcium,Total 9.3 mg/dL (8.5-10.1); Chloride 107 mmol/L (98-107); Creatinine, Serum 0.78 mg/dL (0.55-1.02); EST Glomerular Filtration Rate 94 mL/min (>60); Est Glom Filt Rate - Afr Amer 114 mL/min (>60); Estimated Creatinine Clearance 105.35 ml/min; Globulin 3.9 g/dL (2.2-4.2); Glucose 85 mg/dL (74-106); Potassium 3.7 mmol/L (3.5-5.1); Protein, Total 7.5 g/dL (6.4-8.2); Sodium Level 142 mmol/L (136-145)
[2022-06-23 21:03] VITALS: RESP 18
[2022-06-23 22:34] VITALS: BP 140/68; PULSE 70; RESP 18; O2SAT 98
== END 2022-06-23 22:35 | disposition home or self-care (01) ==
PROVIDERS: Emergency Provider Emergency Medicine; Visit Provider Emergency Medicine
DX: K21.9 Gastro-esophageal reflux disease without esophagitis (principal); R10.9 Unspecified abdominal pain; R16.1 Splenomegaly, not elsewhere classified; F17.210 Nicotine dependence, cigarettes, uncomplicated; Z90.49 Acquired absence of other specified parts of digestive tract
CPT/HCPCS: 74177; 80053; 81001; 84703; 85025; 96361; 96374; 96375; 99283; J7030; Q9967; A4216; J2405; J3490

== ENCOUNTER 2022-10-04 16:51 | Emergency (ER) | payer MEDICAID, SELFPAY ==
[2022-10-04 16:52] VITALS: BP 130/88; PULSE 97; RESP 16; TEMP 36.7; O2SAT 98; BMI 37.9
--- NOTE | 2022-10-04 17:16 | CT_ITS ---
EXAM: CT ABDOMEN AND PELVIS WITH INTRAVENOUS CONTRAST CLINICAL INDICATION: abdominal pain TECHNIQUE: Helically acquired images were obtained of the abdomen and pelvis with intravenous contrast. This CT exam was performed using one or more of the following dose reduction techniques: automated exposure control, adjustment of the mA and/or kV according to patient size, and/or use of iterative reconstruction technique. This report was created using [employer] report generation technology. CONTRAST: IV 100mL Isovue-300 COMPARISON: 06/23/2022. FINDINGS: LOWER THORAX: Unremarkable. Lung bases are clear. No cardiomegaly. No significant pericardial effusion. ABDOMEN: LIVER: Unremarkable. Homogeneous. No focal mass. GALLBLADDER AND BILE DUCTS: Gallbladder is surgically absent. No intra- or extrahepatic biliary ductal dilation. PANCREAS: Unremarkable. No focal cystic or solid mass. SPLEEN: Unremarkable. Normal size without focal cystic or solid mass. ADRENALS: Unremarkable. No nodules. KIDNEYS AND URETERS: Unremarkable. Normal renal size and position. No hydronephrosis. STOMACH AND BOWEL: Unremarkable. No stomach or bowel distention. No focal inflammatory change. PELVIS: APPENDIX: Normal appendix. BLADDER: Unremarkable. REPRODUCTIVE: Unremarkable as visualized. No mass. ABDOMEN and PELVIS: INTRAPERITONEAL SPACE: Unremarkable. No ascites or other fluid collection. No free air. BONES/JOINTS: Unremarkable. No suspicious lytic or blastic abnormality. SOFT TISSUES: Unremarkable. No discrete abdominal or pelvic wall hernia. VASCULATURE: Unremarkable. Abdominal aorta is normal in caliber. LYMPH NODES: Shotty adenopathy in the right lower quadrant. CT/Abdomen/Pelvis W IV Cont ONLY IMPRESSION: Shotty right lower quadrant adenopathy. Consider lymphadenitis. Otherwise negative study. Electronically Signed: Lori Lr MD at 18:47 EST Reading Location ID and State: [id number] / Tel , Service support ,
--- NOTE | 2022-10-04 17:20 | EDS_ITS ---
HPI <MEGHANA Wood - Last Filed: 10/04/22 21:57> History of Present Illness Chief Complaint: Nausea/Vomiting Narrative Narrative: Patient presents today with abdominal pain that she has had for the past week. She states the pain starts near her bellybutton and then radiates to the right lower quadrant. Sometimes she has the pain in her upper left abdomen that radiates to the left side in her back. Patient states she has been having normal bowel movements. She has had a few episodes of vomiting throughout the past week. Patient denies diarrhea, fever, blood in the stool, and hematemesis. Prior abdominal surgeries include a cholecystectomy. PFSH <MEGHANA Wood - Last Filed: 10/04/22 21:57> PFS Medical History [facility] Home Medications esomeprazole magnesium 20 mg capsule,delayed release (Nexium) 20 mg PO DAILY #30 caps 06/23/22 [Rx Last Taken Unknown] ondansetron 4 mg disintegrating tablet 4 mg PO Q8H PRN nausea and vomiting #10 tabs 06/23/22 [Rx Last Taken Unknown] hydrocodone-acetaminophen 5-325mg 5mg-325mg 1 tab PO Q6H PRN pain 3 days #10 tabs 10/04/22 [Rx Last Taken Unknown] ondansetron 4 mg disintegrating tablet 4 mg PO Q8H PRN nausea and vomiting #10 tabs 10/04/22 [Rx Last Taken Unknown] Allergy/AdvReac Type Severity Reaction Status Date / Time ibuprofen Allergy Anaphylaxis Verified 10/04/22 16:52 Surgical History H/O tubal ligation Hx of cholecystectomy Social History Smoking Status: Current every day smoker tobacco type: cigarettes ROS <MEGHANA Wood - Last Filed: 10/04/22 21:57> ROS ED Constitutional Constitutional ED: Denies chills, fever(s) or sweats Eyes Eyes: Denies blurry vision or change in vision ENT ENT ED: Denies rhinorrhea or sore throat Cardiovascular Cardiovascular: Denies chest pain or palpitations Respiratory/Chest Respiratory/Chest: Denies cough, dyspnea or dyspnea on exertion Gastrointestinal Gastrointestinal: Reports abdominal pain, nausea and vomiting; Denies constipation, diarrhea, hematemesis, hematochezia or melena Genitourinary Genitourinary ED: Denies dysuria, hematuria or urinary frequency Musculoskeletal Musculoskeletal: Denies arthralgias, back pain or myalgias Integumentary Denies abscess, Abrasions or rash Neurologic Neurologic: Denies headache(s), paresthesias or weakness Psychiatric Psychiatric: Denies anxiety, depression or suicidal thoughts EXAM <MEGHANA Wood - Last Filed: 10/04/22 21:57> Physical Exam Const Vital Signs: 10/04/22 16:52 10/04/22 19:00 10/04/22 20:00 Temperature 98.0 F 97.9 F 97.8 F Temperature Source Temporal Temporal Pulse Rate 97 78 88 Respiratory Rate 16 16 16 Blood Pressure 130/88 H 134/78 H 128/78 H Blood Pressure Mean 102 96 Pulse Ox 98 98 99 Oxygen Delivery Method Room Air Room Air Positive well developed and obese General Appearance ED: well developed and NAD Nutritional Appearance: obese HEENT atraumatic; Negative for tenderness Eyes PERRL and EOMs intact bilaterally Neck full ROM Chest Wall inspection of chest normal and palpation of chest normal Resp normal respiratory effort and clear to auscultation bilaterally Cardio regular rhythm and no murmurs Rate: regular rate GI non-distended and no masses GI Narrative: Patient has some tenderness to palpation in the right and left lower quadrant. Palpation: soft; Negative for guarding or rebound tenderness present Back/Spine normal to inspection Extremity normal to inspection and full ROM Neuro oriented x3, CN's II-XII intact bilaterally, moves all extremities, no focal motor deficits, no sensory deficits noted and gait normal Sensorium / Orientation: alert <Dr. Aries Gordon DO - Last Filed: 10/04/22 22:40> Physical Exam Const Vital Signs: 10/04/22 16:52 10/04/22 19:00 10/04/22 20:00 Temperature 98.0 F 97.9 F 97.8 F Temperature Source Temporal Temporal Pulse Rate 97 78 88 Respiratory Rate 16 16 16 Blood Pressure 130/88 H 134/78 H 128/78 H Blood Pressure Mean 102 96 Pulse Ox 98 98 99 Oxygen Delivery Method Room Air Room Air MDM <MEGHANA Wood - Last Filed: 10/04/22 21:57> [facility] Narrative Medical decision making narrative: CBC and BMP are unremarkable. CT of the abdomen and pelvis shows right lower quadrant adenopathy, Consider lymphadenitis. Patient was provided pain control as well as Zofran. After these medications patient stated she felt a lot better. Patient has been given a follow-up referral with Dr. Morris in GI. She has been provided pain and nausea control for home. I am comfortable with patient discharging home and patient is comfortable with plan. I have personally performed a face to face assessment of the patient and have reviewed the EDWIN Note. I performed a substantive portion of the visit including all aspects of the following. My nunez findings include: History is [patient presents with abdominal pain off and on for the last year and a half since she had her baby and tubal ligation.? Patient describes intermittent pain that can be right-sided or left-sided.? Patient also describes intermittent diarrhea and alternating constipation.? Patient states she has had pain now for about a week and her mom was worried that she might have appendicitis so she was told to come to the ER to get evaluated.? Patient denies urinary symptoms.? She does not think she is .? She has 4 children at home.? She is has not had any fevers.? Patient denies other complaints.? She has had her gallbladder removed.] Exam is [HEENT-PERRLA, EOMI.? Cranial nerves II through XII grossly intact.? TMs clear.? Mucous membranes moist.? No adenopathy. Cardiovascular-regular rate and rhythm without murmur or ectopy Lungs-clear to auscultation, chest wall stable without crepitus or subcu emphysema Abdomen-mild diffuse tenderness throughout the abdomen.? There is no rebound, rigidity, or peritoneal signs.? No mass palpated Extremities-intact ?4, normal range of motion, normal pulses, atraumatic] Medical Decison Making [patient seen in conjunction with physician corporate administrative assistant.? Lab work-up was unremarkable.? CT abdomen pelvis with contrast was essentially unremarkable there was some question of mesenteric adenitis.? This point discussed results with patient.? Will refer to GI for follow-up.? She will be given a prescription for few [place] for pain.? Etiology of her abdominal pain is unclear.] Other additions or changes: [None] Lab Data Attestation: I reviewed the patient's lab results. Lab results narrative: CBC within normal limits. Anion gap 4. UA shows no acute cystitis. Labs: Laboratory Results - last 24 hr 10/04/22 10/04/22 10/04/22 17:30 17:30 17:30 WBC 10.2 RBC 4.53 Hgb 13.5 Hct 40.8 MCV 90.1 MCH 29.8 MCHC 33.1 RDW Std Deviation 41.2 RDW Coeff of [place] 12.5 Plt Count 296 MPV 11.0 Immature Gran % (Auto) 0.400 Neut % (Auto) 64.5 Lymph % (Auto) 27.1 [place] % (Auto) 3.7 Eos % (Auto) 3.6 Baso % (Auto) 0.7 Absolute Neuts (auto) 6.6 Absolute Lymphs (auto) 2.78 Nucleated RBC % 0 Sodium 141 Potassium 3.6 Chloride 108 H Carbon Dioxide 29.0 Anion Gap 4 L BUN 9 Creatinine 0.64 Estim Creat Clear Calc 128.40 Est GFR (MDRD) Af Amer 144 Est GFR (MDRD) Non-Af 119 BUN/Creatinine Ratio 14.2 Glucose 94 Calcium 9.2 Lipase 91 Urine Color Yellow Urine Clarity Sl. Cloudy Urine pH 8.0 Ur Specific [place] 1.015 Urine Protein Negative Urine Glucose (UA) Normal Urine Ketones Negative Urine Occult Blood Negative Urine Nitrite Negative Urine Bilirubin Negative Urine Urobilinogen Normal Ur Leukocyte Esterase Negative Urine RBC 0 SEEN Urine WBC 0 SEEN Ur Squamous Epith Cells 0-5 SEEN Urine Bacteria RARE Urine Mucus 0 SEEN Urine Test 10/04/22 20:08 WBC RBC Hgb Hct MCV MCH MCHC RDW Std Deviation RDW Coeff of [place] Plt Count MPV Immature Gran % (Auto) Neut % (Auto) Lymph % (Auto) [place] % (Auto) Eos % (Auto) Baso % (Auto) Absolute Neuts (auto) Absolute Lymphs (auto) Nucleated RBC % Sodium Potassium Chloride Carbon Dioxide Anion Gap BUN Creatinine Estim Creat Clear Calc Est GFR (MDRD) Af Amer Est GFR (MDRD) Non-Af BUN/Creatinine Ratio Glucose Calcium Lipase Urine Color Urine Clarity Urine pH Ur Specific [place] Urine Protein Urine Glucose (UA) Urine Ketones Urine Occult Blood Urine Nitrite Urine Bilirubin Urine Urobilinogen Ur Leukocyte Esterase Urine RBC Urine WBC Ur Squamous Epith Cells Urine Bacteria Urine Mucus Urine Test Negative Radiography Diagnostic Testing: Clinical Impression(s) from Imaging Studies Abdomen/Pelvis CT 10/04/22 17:16 IMPRESSION: Shotty right lower quadrant adenopathy. Consider lymphadenitis. Otherwise negative study. Electronically Signed: Lori Lr MD at 18:47 EST Reading Location ID and State: [id number] / Tel , Service support , CT reviewed and I agree with radiologist impressions. This has also been reviewed by attending ED physician. <Dr. Aries Gordon, DO - Last Filed: 10/04/22 22:40> MDM MDM Narrative Medical decision making narrative: I have personally performed a face to face assessment of the patient and have reviewed the EDWIN Note. I performed a substantive portion of the visit including all aspects of the following. My nunez findings include: History is [patient presents with abdominal pain off and on for the last year and a half since she had her baby and tubal ligation. Patient describes intermittent pain that can be right-sided or left-sided. Patient also describes intermittent diarrhea and alternating constipation. Patient states she has had pain now for about a week and her mom was worried that she might have appendicitis so she was told to come to the ER to get evaluated. Patient denies urinary symptoms. She does not think she is . She has 4 children at home. She is has not had any fevers. Patient denies other complaints. She has had her gallbladder removed.] Exam is [HEENT-PERRLA, EOMI. Cranial nerves II through XII grossly intact. TMs clear. Mucous membranes moist. No adenopathy. Cardiovascular-regular rate and rhythm without murmur or ectopy Lungs-clear to auscultation, chest wall stable without crepitus or subcu emphysema Abdomen-mild diffuse tenderness throughout the abdomen. There is no rebound, rigidity, or peritoneal signs. No mass palpated Extremities-intact ?4, normal range of motion, normal pulses, atraumatic] Medical Decison Making [patient seen in conjunction with physician corporate administrative assistant. Lab work-up was unremarkable. CT abdomen pelvis with contrast was essentially unremarkable there was some question of mesenteric adenitis. This point discussed results with patient. Will refer to GI for follow-up. She will be given a prescription for few [place] for pain. Etiology of her abdominal pain is unclear.] Other additions or changes: [None] Lab Data Attestation: I reviewed the patient's lab results. Labs: Laboratory Results - last 24 hr 10/04/22 10/04/22 10/04/22 17:30 17:30 17:30 WBC 10.2 RBC 4.53 Hgb 13.5 Hct 40.8 MCV 90.1 MCH 29.8 MCHC 33.1 RDW Std Deviation 41.2 RDW Coeff of [place] 12.5 Plt Count 296 MPV 11.0 Immature Gran % (Auto) 0.400 Neut % (Auto) 64.5 Lymph % (Auto) 27.1 [place] % (Auto) 3.7 Eos % (Auto) 3.6 Baso % (Auto) 0.7 Absolute Neuts (auto) 6.6 Absolute Lymphs (auto) 2.78 Nucleated RBC % 0 Sodium 141 Potassium 3.6 Chloride 108 H Carbon Dioxide 29.0 Anion Gap 4 L BUN 9 Creatinine 0.64 Estim Creat Clear Calc 128.40 Est GFR (MDRD) Af Amer 144 Est GFR (MDRD) Non-Af 119 BUN/Creatinine Ratio 14.2 Glucose 94 Calcium 9.2 Lipase 91 Urine Color Yellow Urine Clarity Sl. Cloudy Urine pH 8.0 Ur Specific [place] 1.015 Urine Protein Negative Urine Glucose (UA) Normal Urine Ketones Negative Urine Occult Blood Negative Urine Nitrite Negative Urine Bilirubin Negative Urine Urobilinogen Normal Ur Leukocyte Esterase Negative Urine RBC 0 SEEN Urine WBC 0 SEEN Ur Squamous Epith Cells 0-5 SEEN Urine Bacteria RARE Urine Mucus 0 SEEN Urine Test 10/04/22 20:08 WBC RBC Hgb Hct MCV MCH MCHC RDW Std Deviation RDW Coeff of [place] Plt Count MPV Immature Gran % (Auto) Neut % (Auto) Lymph % (Auto) [place] % (Auto) Eos % (Auto) Baso % (Auto) Absolute Neuts (auto) Absolute Lymphs (auto) Nucleated RBC % Sodium Potassium Chloride Carbon Dioxide Anion Gap BUN Creatinine Estim Creat Clear Calc Est GFR (MDRD) Af Amer Est GFR (MDRD) Non-Af BUN/Creatinine Ratio Glucose Calcium Lipase Urine Color Urine Clarity Urine pH Ur Specific [place] Urine Protein Urine Glucose (UA) Urine Ketones Urine Occult Blood Urine Nitrite Urine Bilirubin Urine Urobilinogen Ur Leukocyte Esterase Urine RBC Urine WBC Ur Squamous Epith Cells Urine Bacteria Urine Mucus Urine Test Negative Radiography Diagnostic Testing: Clinical Impression(s) from Imaging Studies Abdomen/Pelvis CT 10/04/22 17:16 IMPRESSION: Shotty right lower quadrant adenopathy. Consider lymphadenitis. Otherwise negative study. Electronically Signed: Lori Lr MD at 18:47 EST Reading Location ID and State: [id number] / Tel , Service support , Discharge Plan Triage Chief Complaint: Nausea/Vomiting ED Midlevel Provider: Kaia Bell ED Provider: Aries Gordon Dx/Rx/DC Orders Clinical Impression: Abdominal pain, Nausea & vomiting Instructions: ED Abdominal Pain Unkn Cause Fem, ED Vomiting (Adult) Prescriptions: New hydrocodone-acetaminophen 5-325 mg tablet 1 tab PO Q6H PRN (Reason: pain) 3 Days Qty: 10 0RF ondansetron 4 mg tablet,disintegrating 4 mg PO Q8H PRN (Reason: nausea and vomiting) Qty: 10 0RF No Action ondansetron 4 mg tablet,disintegrating 4 mg PO Q8H PRN (Reason: nausea and vomiting) Qty: 10 0RF esomeprazole magnesium [Nexium] 20 mg capsule,delayed release(DR/EC) 20 mg PO DAILY Qty: 30 0RF Primary Care Provider: Care Physician,No Primary Referrals: Friend,Chong, DO [Med Staff - Active Staff] - 5-7 Days Care Physician,No Primary [Primary Care Provider] - Activity Restrictions/Additional Instructions: Please follow-up with GI doctor. Please return if symptoms worsen. Stay well- hydrated. Disposition Disposition: Home, Self Care Discharge Date/Time: 10/04/22 20:10
[2022-10-04] MEDS: Ondansetron 4 MG/2 ML Vial IV (17:36)
[2022-10-04 17:38] LABS: Mucous, Urine 0 SEEN /hpf (<or=2+); Red Blood Cells-Urine 0 SEEN /hpf (0-5); White Blood Cells 0 SEEN /hpf (0-5)
[2022-10-04 17:43] LABS: Absolute Lymphocyte Count 2.78 X10^3/uL (0.83-4.51); Absolute Neutrophil Count 6.6 X10^3/uL (2.0-7.7); Basophil# 0.07 X10^3/uL; Basophil% 0.7 % (0-1); Eosinophil# 0.37 X10^3/uL; Eosinophils% 3.6 % (0-5); Hematocrit 40.8 % (37-47); Hemoglobin 13.5 g/dL (12.0-15.0); Lymphocyte # 2.78 X10^3/ul (0.83-4.51); Lymphocyte % 27.1 % (19-41); Mean Corp Hgb Conc 33.1 g/dL (32-36); Mean Corpuscular Hgb 29.8 pg (27.0-32.0); Mean Corpuscular Volume 90.1 fL (81-99); Monocyte# 0.38 X10^3/uL; Monocyte% 3.7 % (0-10); NRBC Flagged by Analyzer 0 % (0-5); Neutrophil % 64.5 % (47-70); Platelet Count 296 K/mm3 (150-450); RBC Distribution Width CV 12.5 % (11.6-14.6); RBC Distribution Width SD 41.2 fl (35.1-43.9); Red Blood Count 4.53 M/mm3 (4.2-5.4); White Blood Count 10.2 K/mm3 (4.4-11.0)
[2022-10-04 17:55] LABS: Color, Urine Yellow (Yellow); Glucose, Dipstick Normal (Normal); Ketone-Dipstick Negative (Negative); Leukocyte Esterase-Dipstick Negative /ul (Negative); Nitrite-Dipstick Negative (Negative); Occult Blood-Urine Negative /ul (Negative); Protein-Dipstick Negative (Negative); Specific Gravity, Urine 1.015 (1.002-1.030); Urine Bilirubin Dipstick Negative (Negative); Urine Clarity Sl. Cloudy (Clear); Urine Urobilinogen Normal (Normal)
[2022-10-04 17:57] LABS: Anion Gap 4 (5-15); BUN 9 mg/dL (7-18); BUN/Creat Ratio 14.2 RATIO (10-20); Calcium,Total 9.2 mg/dL (8.5-10.1); Chloride 108 mmol/L (98-107); Creatinine, Serum 0.64 mg/dL (0.55-1.02); EST Glomerular Filtration Rate 119 mL/min (>60); Est Glom Filt Rate - Afr Amer 144 mL/min (>60); Glucose 94 mg/dL (74-106); Lipase 91 U/L (73-393); Potassium 3.6 mmol/L (3.5-5.1); Sodium Level 141 mmol/L (136-145)
[2022-10-04 18:17] LABS: Bacteria RARE /hpf (None Seen); Squamous Epithelial Cells - UA 0-5 SEEN /hpf (5-10)
[2022-10-04 19:00] VITALS: BP 134/78; PULSE 78; RESP 16; TEMP 36.6; O2SAT 98
[2022-10-04] MEDS: Morphine 4 MG/ML Syringe IV (19:09)
[2022-10-04 20:00] VITALS: BP 128/78; PULSE 88; RESP 16; TEMP 36.6; O2SAT 99
[2022-10-04 20:20] LABS: Internal QC Validated? YES +Cl - CLEAR BKGD; Pregnancy, Urine Negative Negative
== END 2022-10-04 20:10 | disposition home or self-care (01) ==
PROVIDERS: Physician Assistant; Emergency Provider Emergency Medicine; Visit Provider Emergency Medicine
DX: R10.12 Left upper quadrant pain (principal); R11.2 Nausea with vomiting, unspecified; F17.210 Nicotine dependence, cigarettes, uncomplicated; E66.9 Obesity, unspecified
CPT/HCPCS: 74177; 80048; 81001; 81025; 83690; 85025; 96374; 96375; 99283; Q9967; A4216; J2405

== ENCOUNTER 2023-06-25 12:21 | Emergency (ER) | payer MEDICAID, SELFPAY ==
[2023-06-25 12:22] VITALS: BP 116/52; PULSE 93; RESP 22; TEMP 37.2; O2SAT 100; BMI 36.6
--- NOTE | 2023-06-25 12:36 | EDS_ITS ---
HPI HPI - URI History of Present Illness Chief Complaint: Shortness of Breath Narrative Narrative: 28-year-old female who denies significant past medical history presents with 3 weeks worth of upper respiratory infection type symptoms, and bronchitis. She states she feels short of breath sometimes has been coughing up green mucus. She has nasal congestion and rhinorrhea. She has not had any recent fevers or chills but does have body aches. She has tried rboe-spa-kbzapem medications without relief of her symptoms. Essentially she presents to the emergency department because she wants to know if she has COVID. Occasionally she will get pain on the left side of her chest greater than right from coughing. It is sharp and stabbing in nature. ROS ROS ED ROS Narrative Constitutional: No fever, no chills. HEENT: Positive sore throat. No neck pain. No loss of vision. Positive nasal congestion and rhinorrhea. Cardiovascular: Positive chest pain with coughing. No palpitations. No pedal edema. Respiratory: Positive cough, mild shortness of breath. Abdominal: No abdominal pain. No nausea. No vomiting. Genitourinary: No dysuria. No hematuria. Musculoskeletal: No myalgias. No arthralgias. Neurologic: No headaches. No dizziness. No lightheadedness. Skin: No rash. No change in color. Psychiatric: No depression. Mild anxiety. [facility] Medical History [facility] Home Medications prednisone 20 mg tablet 40 mg (2 x 20 mg) PO DAILY 5 days #10 tabs 06/25/23 [Rx Last Taken Unknown] ranitidine HCl 150 mg tablet 150 mg PO DAILY 06/25/23 [History Last Taken Unknow n] Allergy/AdvReac Type Severity Reaction Status Date / Time ibuprofen Allergy Anaphylaxis Verified 06/25/23 12:21 Surgical History H/O tubal ligation Hx of cholecystectomy Social History Smoking Status: Current every day smoker tobacco type: cigarettes EXAM Physical Exam Narrative Exam Narrative: Afebrile. Vital signs noted. HEENT: Normocephalic. Atraumatic. PERRL, EOMI. Neck soft and supple. No point tenderness or step off. Positive nasal congestion and rhinorrhea. Cardiovascular: Regular rate and rhythm. No murmurs, rubs, or gallops appreciated. Respiratory: Mild tachypnea. Lungs clear to auscultation bilaterally. Wet c ough on examination. Gastrointestinal: Abdomen soft, nontender, with normoactive bowel sounds. No rebound or guarding. Neurological: Awake. Alert. Nonfocal, nonlateralizing. Skin: No rash. Normal color. No pallor. Musculoskeletal: No pedal edema. Full range of motion extremities. Const Vital Signs: 06/25/23 12:22 06/25/23 12:59 Temperature 99 F Temperature Source Temporal Pulse Rate 93 Respiratory Rate 22 H Respiratory Effort Normal Non-Labored Respiratory Depth Normal Respiratory Pattern Normal Blood Pressure 116/52 L Blood Pressure Mean 73 Pulse Ox 100 Oxygen Delivery Method Room Air MDM MDM MDM Narrative Medical decision making narrative: Her pulse ox is 100% on room air without evidence of hypoxia. I am not concerned for PE. In the differential diagnosis is viral bronchitis versus pneumonia. I have low suspicion for pneumothorax because the history and physical is not suggestive of that. I will obtain a 1 view chest x-ray and interpreted it. She was given an albuterol inhaler 4 puffs inhaled along with prednisone 60 mg orally. She will be swabbed for COVID and influenza, but she is already outside the window for any antiviral treatment. I reviewed her chest x-ray in 1 view and see no evidence of a consolidation or pneumothorax. I do not feel antibiotics are indicated. Her pulse ox is 100% on room air without evidence of hypoxia. I reviewed the radiology report which confirms my independent interpretation. Upon repeat examination, she states she feels the same. I feel she be discharged safely home with follow-up. She will be given a prednisone burst of 40 mg for the next 5 days and her albuterol inhaler was dispensed to her to use every 4-6 hours as needed, 1 to 2 puffs for shortness of breath. She will also take mspc-jto-[id number] medications as needed. Follow-up with the primary care. Disposition is discharged home in stable condition. Radiography Diagnostic Testing: Clinical Impression(s) from Imaging Studies Chest X-Ray 06/25/23 13:01 IMPRESSION: Normal x-ray examination of the chest. Electronically Signed: Adeel Bueno MD at 13:52 EDT Reading Location ID and State: [address] [place] [address] , Service support , Discharge Plan Triage Chief Complaint: Shortness of Breath ED Provider: Abhi Greenfield Dx/Rx/DC Orders Clinical Impression: Costochondritis, Bronchitis Instructions: ED Bronchitis, No Antibiotic (Adult), ED Chest Wall Pain, Costochondritis Prescriptions: New prednisone 20 mg tablet 40 mg PO DAILY 5 Days Qty: 10 0RF No Action ranitidine HCl 150 mg tablet 150 mg PO DAILY Primary Care Provider: Care Physician,No Primary Referrals: Terry Zaragoza MD [Med Staff - Active Staff] - As soon as possible Care Physician,No Primary [Primary Care Provider] - Activity Restrictions/Additional Instructions: Use the inhaler/albuterol inhaler 1 to 2 puffs every 4-6 hours as needed for shortness of breath. Take rvxe-rcg-wiribca medications for your cough. Start your steroid burst for 5 days tomorrow. Disposition Disposition: Home, Self Care
[2023-06-25] MEDS: predniSONE 20 MG Tablet 60 MG PO (12:58)
--- NOTE | 2023-06-25 13:01 | RAD_ITS ---
STUDY: X-RAY CHEST REASON FOR EXAM: Female, 28 years old. cough, sob TECHNIQUE: Single AP portable view of the chest. COMPARISON: None. FINDINGS: The lungs are clear and expanded. There is no demonstrated pleural abnormality. Normal size heart. Normal mediastinum and kenan. Normal visualized pulmonary arteries. Normal visualized aortic arch and descending thoracic aorta. Normal visualized thoracic spine. Normal visualized ribs, clavicles, and shoulders. There is no demonstrated abnormality of the visualized soft tissue structures of the upper abdomen. RAD/Chest 1 View (Portable) IMPRESSION: Normal x-ray examination of the chest. Electronically Signed: Adeel Bueno MD at 13:52 EDT ,
[2023-06-25] MEDS: Albuterol Sulfate 8 gm Inhaler (60 puffs) 4 PUFF INHALATION (13:54)
[2023-06-25 14:33] VITALS: BP 108/69; PULSE 72; RESP 15; O2SAT 99
== END 2023-06-25 14:33 | disposition home or self-care (01) ==
PROVIDERS: Emergency Provider Emergency Medicine; Visit Provider Emergency Medicine
DX: M94.0 Chondrocostal junction syndrome [Tietze] (principal); J40 Bronchitis, not specified as acute or chronic; F17.210 Nicotine dependence, cigarettes, uncomplicated
CPT/HCPCS: 71045; 87428; 94640; 99283

== ENCOUNTER 2023-09-30 12:10 | Emergency (ER) | payer MEDICAID, SELFPAY ==
[2023-09-30 12:10] VITALS: BP 137/87; PULSE 109; RESP 14; TEMP 36.8; O2SAT 98; BMI 36.6
--- NOTE | 2023-09-30 12:16 | RAD_ITS ---
HISTORY: pain. TECHNIQUE: XR Hand Min 3 Views. COMPARISON: None. FINDINGS: BONES : Impacted fracture of the fifth metacarpal neck with mild angulation and palmar displacement. Mineralization unremarkable. JOINTS: No dislocation. Joint spaces maintained. SOFT TISSUES: Overlying soft tissue swelling. Small calcific densities adjacent to the fourth metacarpal head. RAD/Hand Min 3 Views IMPRESSION: Mildly impacted and displaced fracture of the right fifth metacarpal neck. Electronically Signed: Kristin Varghese MD at 12:57 EST ,
--- NOTE | 2023-09-30 12:24 | EX.ED.UPPERE ---
HPI History of Present Illness HPI Narrative: 28-year-old female, ismao-otpt-rgqlseya, reportedly tripped and fell over her dog lead the other day injuring her right hand. Saw the [facility] urgent care was told she had a fracture of her ring and small finger. Was placed in a prefabricated splint. Is scheduled to follow-up with orthopedics at the [facility] in [place] on 1220. Patient is looking for something for pain. Chief Complaint: Upper Extremity Injury Informant: patient Occured/Mechanism Mechanism/Context: Yes injury and Yes blunt trauma Onset/Context/Timing Onset: Days Context: Sudden Onset Timing: Continuous Quality of Pain: Dull and Aching Current Severity: Moderate Maximum Severity: Moderate Associated Symptoms Associated Symptoms: Negative for Parasthesia, Weakness or Loss of Funtion Narrative Narrative: 8-year-old female tczsd-[id number]-[id number] reportedly tripped and fell injuring her right small and ring finger at the MCP. Prior similar symptoms: No Recent Illness/Hospitalization: No PFSH PFSH Medical History [facility] Home Medications prednisone 20 mg tablet 40 mg (2 x 20 mg) PO DAILY 5 days #10 tabs 06/25/23 [Rx Last Taken Unknown] ranitidine HCl 150 mg tablet 150 mg PO DAILY 06/25/23 [History Last Taken Unknown] hydrocodone-acetaminophen 5-325mg 5mg-325mg 1 tab PO Q4H PRN PRN Pain 4 days #10 TABLETS 09/30/23 [Rx Last Taken Unknown] Allergy/AdvReac Type Severity Reaction Status Date / Time ibuprofen Allergy Anaphylaxis Verified 09/30/23 12:10 Surgical History H/O tubal ligation Hx of cholecystectomy Social History Smoking Status: Current every day smoker tobacco type: cigarettes ROS ROS ED Eyes Eyes: Denies blurry vision ENT ENT ED: Denies ear pain Cardiovascular Cardiovascular: Denies chest pain Respiratory/Chest Respiratory/Chest: Denies cough or dyspnea Gastrointestinal Gastrointestinal: Denies abdominal pain Genitourinary Genitourinary ED: Denies dysuria or hematuria Musculoskeletal Musculoskeletal: Denies back pain, myalgias or neck pain Integumentary Denies abscess, Abrasions or rash Neurologic Neurologic: Denies headache(s) Psychiatric Psychiatric: Denies anxiety or depression Endocrine Endocrinology: Denies cold intolerance Hematologic/Lymphatic Hematologic/Lymphatic: Denies easy bleeding or easy bruising Allergic/Immunologic Allergic/Immunologic ED: Denies mouth swelling, tongue swelling or urticaria EXAM Physical Exam Narrative Exam Narrative: 28-year-old female no acute distress. Vital signs stable afebrile. H EENT exam unremarkable atraumatic. Neck nontender. Lungs clear to auscultation. Heart regular rate and rhythm rate about 100 no murmur. Chest wall and ribs nontender. Abdomen soft nontender. Back nontender. Moving all 4 extremities. Right hand removed a prefabricated right hand splint. She is bruising tenderness and mild swelling to the MCP of the right small and ring finger. Tender to palpation. She is able to do full extension. Limited flexion due to pain. Decreased sensation in the right small finger. Skins intact. Mild but no extensive swelling. Wrist and forearm are nontender. Const Vital Signs: 09/30/23 12:10 Temperature 98.3 F Temperature Source Temporal Pulse Rate 109 H Respiratory Rate 14 Blood Pressure 137/87 H Blood Pressure Mean 103 Pulse Ox 98 Positive well nourished and well developed; Negative for cachectic, contractures or unkempt General Appearance ED: well developed and NAD; Negative for unkempt, cachectic, contractures, cyanotic or diaphoretic Nutritional Appearance: Negative for cachectic HEENT Reports moist mucous membranes normocephalic and atraumatic; Negative for trauma or tenderness Eyes EOMs intact bilaterally General Eye ED: Negative for other Neck full ROM and supple General: Negative for tenderness Lymph Lymphatic: Negative for other Chest Wall inspection of chest normal and palpation of chest normal Chest: Negative for other Resp normal respiratory effort and clear to auscultation bilaterally Effort and Inspection: Negative for pain with movement Auscultation: Negative for rales, rhonchi or wheezes Cardio regular rate, regular rhythm, S1 normal heart sound, S2 normal heart sound and no murmurs Rate: Negative for bradycardia or tachycardic Rhythm: Negative for abnormal rhythm GI non-tender, non-distended and no masses Inspection: Negative for abdominal distention Auscultation: normoactive bowel sounds Palpation: soft; Negative for tender or guarding Back/Spine no CVA tenderness General Back: Negative for CVA tenderness Cervical Spine: Negative for cervical spine tenderness Thoracic Spine / Upper Back: Negative for thoracic spinal tenderness Lumbar Spine / Lower Back: Negative for lumbar spinal tenderness Extremity Negative for normal to inspection or full ROM Extremity Narrative: Hand tenderness to the right small and ring finger MCP. Swelling. No bruising. Full extension. Limited flexion due to pain. Skin intact. Decreased sensation right small finger. Normal cap refill. General Extremety ED: Yes edema General Extremity: edema Neuro oriented x3, CN's II-XII intact bilaterally, moves all extremities, no focal motor deficits and No no sensory deficits noted Sensorium / Orientation: alert, oriented to person, oriented to place and oriented to time; Negative for orientation impaired, lethargic or stuporous Motor Exam: strength 5/5 throughout Psych mental status grossly normal Appearance: Negative for unkempt Attitude: No agitated Mood & Affect: Negative for depressed, anxious or tearful Skin General Skin Exam: Negative for petechiae Lesions: no lesions Rashes: no rashes Trauma: no lacerations or abrasions MDM MDM MDM Narrative Medical decision making narrative: 28-year-old female [id number]-ohirjmnn with reported fractures of her small and ring finger. X-ray being obtained. Repeat exam unchanged. She will stay in her splint. Follow-up with orthopedics at the [facility] for whom she already has a scheduled appointment. I will write her for 14 [place] for pain. Otherwise ice and elevate. Radiography Diagnostic Testing: Right hand x-ray, 3 views, interpreted by myself shows boxer's fracture or fifth or small finger distal metacarpal fracture with palmar angulation. I do not see any significant fracture of the fourth or ring metacarpal there may be a tiny avulsion calcification. Discharge Plan Triage Chief Complaint: Upper Extremity Injury ED Provider: Samuel Bender Dx/Rx/DC Orders Clinical Impression: Boxer's fracture Instructions: Boxer's Fracture Prescriptions: New hydrocodone-acetaminophen 5-325 mg tablet 1 tab PO Q4H PRN PRN (Reason: Pain) 4 Days Qty: 10 0RF No Action ranitidine HCl 150 mg tablet 150 mg PO DAILY prednisone 20 mg tablet 40 mg PO DAILY 5 Days Qty: 10 0RF Primary Care Provider: Care Physician,No Primary Referrals: Care Physician,No Primary [Primary Care Provider] - Activity Restrictions/Additional Instructions: Ice and elevate your right hand to decrease pain and swelling. Sofi for severe pain. Follow-up with the orthopedic physician at the [facility] with your scheduled appointment October 11. Disposition Disposition: Home, Self Care
== END 2023-09-30 13:19 | disposition home or self-care (01) ==
PROVIDERS: Emergency Provider Emergency Medicine; Referring Provider Emergency Medicine; Visit Provider Emergency Medicine
DX: S62.606A Fracture of unspecified phalanx of right little finger, initial encounter for closed fracture (principal); F17.210 Nicotine dependence, cigarettes, uncomplicated; W01.0XXA Fall on same level from slipping, tripping and stumbling without subsequent striking against object, initial encounter
CPT/HCPCS: 73130; 99282

== ENCOUNTER → 2025-05-02 | Outpatient (CLI) | payer MEDICAID, SELFPAY | END | disposition home or self-care (01) | LOC: LABSPEC 15:09 | DX: H92.12 Otorrhea, left ear (principal) | CPT/HCPCS: 87070; 87075; 87077; 87186; 87205 ==

== ENCOUNTER 2025-05-22 10:25 | Day surgery (SDC) | payer MEDICAID, SELFPAY ==
--- NOTE | 2025-05-21 17:14 | PCM.HP.BLA ---
History and Physical Date of Admission: 05/22/25 VIRTUAL VISIT PROGRESS NOTE This is a virtual visit using [employer] Zoom Video Visit. It required patient-provider interaction for the medical decision making as documented below. I have communicated my name and active licensure. The patient's identity and physical location were verified at the time of this visit. Either the patient or their legal cash application representative has been informed of the risks and benefits of -- and alternatives to -- treatment through a remote evaluation and consents to proceed with the evaluation remotely. Pre-Op History and Physical HPI: The patient is a 30 year old female presenting for discussion of LEEP procedure/treatment for CIN2 pre-operative visit. She is scheduled for LEEP, for HSIL on 05/22/25. Procedure discussed along with risks, benefits and complications. Other alternatives discussed for management. Consent form signed? NO will sign day of surgery PAST MEDICAL HISTORY PAST MEDICAL HISTORY Diagnosis Date ? Breast cyst ? DREW I (cervical intraepithelial neoplasia I) 12/2022 ? HGSIL (high grade squamous intraepithelial lesion) on Pap smear of cervix 11/2022 PAST SURGICAL HISTORY PAST SURGICAL HISTORY Procedure Laterality Date ? BREAST SURGERY PROCEDURE UNLISTED Bilateral 01/21/2022 Breast Fistulectomy ? LIGATE FALLOPIAN TUBE ? MASTOTOMY W/EXPLORATION/DRAINAGE ABSCESS DEEP 11/14/2021 ? REMOVAL GALLBLADDER 2014 ? VAGINOSCOPY 12/2022 CURRENT MEDICATIONS Current Outpatient Medications Medication Sig Dispense Refill ? rimegepant (NURTEC ODT) 75 mg disintegrating tablet Take 1 tablet by mouth once daily as needed. 15 tablet 2 ? MEDICATION, NON-DATABASE Medical Marijuana No current facility-administered medications for this visit. ALLERGIES: Ibuprofen PERSONAL HISTORY: SOCIAL HISTORY Social History Tobacco Use ? Smoking status: Former Current packs/day: 0.00 Average packs/day: 1 pack/day for 16.0 years (16.0 ttl pk-yrs) Types: Cigarettes Start date: 10/30/2006 Quit date: 10/30/2022 Years since quittin.5 ? Smokeless tobacco: Never Vaping Use ? Vaping status: Former ? Substances: Nicotine Substance Use Topics ? Alcohol use: Not Currently ? Drug use: Yes Types: Marijuana Comment: Medical Marijuana FAMILY HISTORY: FAMILY HISTORY FAMILY HISTORY Problem Relation Age of Onset ? Migraines Maternal Grandmother REVIEW OF SYMPTOMS: negative except as noted above PHYSICAL EXAMINATION: VITALS: Last menstrual period 04/02/2025. GENERAL: The patient is well nourished, well hydrated in no acute distress. , The patient is oriented to time, place, and person. NECK: full range of motion IMPRESSION: 30yo with CIN2 on colposcopy PLAN: LEEP Pt has been counseled on risks/benefits and alternatives of surgery including but not limited to anesthesia, bleeding, infection, injury to pelvic structures including bowel, bladder, vessel due to thermal injury . Pt wishes to proceed with surgery at this time. Pre and post op instructions reviewed I have reviewed and updated past medical and surgical history, medications and allergies Keila Noguera MD [facility] on 05/07/2025 Note viewed by patient
[2025-05-22] VITALS (8 sets, daily range): BP systolic 89–131; BP diastolic 59–87; PULSE 65–89; RESP 16; TEMP 36.2–36.8; O2SAT 95–99; BMI 36.1
[2025-05-22 10:54] LABS: Internal QC Validated? YES +Cl - CLEAR BKGD; Pregnancy, Urine Negative Negative; Record Kit Lot#,Urine Preg 962302
--- NOTE | 2025-05-22 11:03 | PCM.DC ---
Discharge Instructions DC O2, CPAP, BIPAP needs Home O2 Discharge instructions: No Dressing / Incision May resume sexual activity in: 4 weeks Dressing / Incision Call your doctor if you observe: Fever of 101 or Higher, Inability to urinate, Using more than 1 pad per hour and Uncontrolled pain Follow Up Care Please Follow Up With: Keila Thompson MD When: I will call you with pathology results in 1-2 weeks, if you feel you need an appointment please call [phone] Test Results: Test results from this visit will be discussed in further detail at your follow-up appointment, if applicable. Discharge Plan Admission Attending Provider: Keila Thompson Primary Care Provider: Care PhysicianCelia Primary Instructions Print Language: Slovenian Discharge Orders/Prescriptions Prescriptions: No Action ciprofloxacin HCl 500 mg tablet 500 mg PO Q12H ciprofloxacin-dexamethasone 0.3-0.1 % drops,suspension 5 drp otic (ear) BID multivitamin [Daily Multi-Vitamin] Tablet 1 tab PO DAILY Referrals / Follow Up: Care Physician,No Primary [Primary Care Provider] - Disposition Disposition (needs filled in before D/C Order can be placed): Home, Self Care
--- NOTE | 2025-05-22 11:35 | PRE.ANES_ITS ---
ASA Classification* ASA Classification ASA Classification: 1 Assessment & Plan Anesthesia* Anesthesia Assessment Anesthesia Assessment: Discussed sedation and/or anesthesia options, risks, benefits, and alternatives with patient/parents/legal guardian/POA. Questions invited. The patient/parents/legal guardian/POA seems to understand and agrees to proceed with anesthesia plan. Reviewed the physical assessment, medical history, allergy history and patient home medications list prior to surgery/procedure/anesthetic and documented any changes. Performed airway and anesthesia risk assessments. Anesthesia Type Anesthesia Type: MAC History Source History Obtained from:: Patient and Chart Anesthesia Focused Assessment* Temperature: 98.2 F Pulse Rate: 88 Blood Pressure: 107/81 Respiratory Rate: 16 Pulse Ox: 97 Oxygen Delivery Method: Room Air Airway Assessment Mouth opens: >3 cm Mallampati Score: II Teeth Condition: Intact Neck Range of motion (ROM): Full ROM Labs Anesthesia Preop lab: CBC WBC 10.2 K/mm3 (4.4-11.0) 10/04/22 17:30 10/04/22 RBC 4.53 M/mm3 (4.2-5.4) 10/04/22 17:30 10/04/22 Hgb 13.5 g/dL (12.0-15.0) 10/04/22 17:30 10/04/22 Hct 40.8 % (37-47) 10/04/22 17:30 10/04/22 Plt Count 296 K/mm3 (150-450) 10/04/22 17:30 10/04/22 CHEMISTRY Potassium 3.6 mmol/L (3.5-5.1) 10/04/22 17:30 10/04/22 Sodium 141 mmol/L (136-145) 10/04/22 17:30 10/04/22 BUN 9 mg/dL (7-18) 10/04/22 17:30 10/04/22 Creatinine 0.64 mg/dL (0.55-1.02) 10/04/22 17:30 10/04/22 Glucose 94 mg/dL (74-106) 10/04/22 17:30 10/04/22 COAG Urine Test Negative Negative 05/22/25 10:43 05/22/25 Pre-Assessment Diagnosis/Proposed Procedure Planned Operative Procedure(s): TATI CONE Anesthesia History 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 When Was Last Pacemaker Check QUESTION #4 FULL TEXT: You/Your Family Experience fever (hyperthermia) with Anesthesia Last Oral Intake Last Oral intake: Last Oral Intake NPO since 22:00 05/22/25 10:53 Meds taken in AM with sips of No 05/22/25 10:53 water? Meds patient instructed to take am of surgery PONV PONV - automation and controls manager: PONV - automation and controls manager Female Yes 05/13/25 11:50 HX of Motion Sickness Yes 05/13/25 11:50 HX of N/V After Surgery No 05/13/25 11:50 Non-Smoker Yes 05/13/25 11:50 Duration of Surgery greater No 05/13/25 11:50 than 60 minutes Number of Risk Factors 3 05/13/25 11:50 PONV Score Moderate Risk 05/13/25 11:50 Height & Weight Height & Weight: Anesthesia: Height & Weight Height 5 ft 7 in 05/22/25 10:53 Weight: 104.6 kg 05/22/25 10:53 Body Mass Index (BMI) 36.1 05/22/25 10:53 Respiratory Assessment Respiratory Assessment - automation and controls manager: Respiratory Tract Infection Hx - automation and controls manager Hx Respiratory Tract Infection Yes: EAR INFECTION/BEING 05/13/25 11:50 TREATED STOP Sleep Apnea STOP Sleep Apnea - automation and controls manager: STOP Sleep Apnea - automation and controls manager Hx Hypertension No 05/13/25 11:50 Hx Sleep Apnea No 05/13/25 11:50 CPAP BIPAP Do you snore loudly (louder No 05/13/25 11:50 than talking or can be heard Do you often feel tired/ No 05/13/25 11:50 fatigued/ sleepy during daytime? Has anyone observed you stop No 05/13/25 11:50 breathing during sleep? STOP Results Negative 05/13/25 11:50 QUESTION #5 FULL TEXT : Do you snore loudly (louder than talking or can be heard through closed doors)? Tobacco Use History Tobacco Use History - automation and controls manager: Tobacco Use History - automation and controls manager Tobacco Use Smoking Status Current every day smoker 05/13/25 11:50 Hx Tobacco Use Yes 05/13/25 11:50 Years Smoking Packs Smoked per Day Smoking Cessation Date was within the last 15 years Hx Smoking Cessation Date Hx Smoking Cessation Counseling Hematologic Medial History Hematologic Hx - automation and controls manager: Hematologic Medical Hx - tongue presser Hx of Blood Transfusion No 05/13/25 11:50 Hx of Transfusion in last 3 No 05/13/25 11:50 Months Date of Last Transfusion (if within last 3 months) Ever experience any problems No 05/13/25 11:50 with transfusion(s)? Specify any problems Hx of Preganancy in last 3 No 05/13/25 11:50 Months Nurse Filling Out Transfusion DSCHRIBER 05/13/25 11:50 & Questions: Date: 05/13/25 05/13/25 11:50 Time: 11:51 05/13/25 11:50 Patient unable to answer at this time (ie. confused, unrespo /Reproduction History /Reproductive History - automation and controls manager: /Reproductive Hx- automation and controls manager Hx Now No 05/13/25 11:50 Gestational Age (in weeks): EDC: Hx Hx Para Hx Section SAB No 05/13/25 11:50 Active Medications Active Medications: Current Medications Generic Name Dose Route Start Last Admin Trade Name Freq PRN Reason Stop Dose Admin Lactated Ringer's 1,000 mls @ 15 mls/hr 05/22/25 10:45 IV .Q48H KRISTINA PFSH Medical History Wears glasses Anxiety Marijuana use Low iron Migraine headache Back pain Dietary restriction History of GI bleed Gastric reflux Smoker Leg cramps History of pain when walking History of Holter monitoring Home Medications ?Medication ?Instructions ?Recorded ?Last Taken ?Type ciprofloxacin 0.3 %-dexamethasone 5 drp otic (ear) BID EAR INFECTION 05/13/25 Unknown History 0.1 % ear drops,suspension ciprofloxacin HCl 500 mg tablet 500 mg PO Q12H EAR INF ECTION 05/13/25 Unknown History multivitamin (Daily Multi-Vitamin 1 tab PO DAILY 05/13 Unknown History tablet) Allergy/AdvReac Type Severity Reaction Status Date / Time ibuprofen Allergy Anaphylaxis Verified 05/13/25 11:45 Surgical History History of open reduction and internal fixation (ORIF) procedure History of incision and drainage Hx of cholecystectomy H/O tubal ligation Social History Smoking Status: Current every day smoker tobacco type: cigarettes Review of Systems (Anesthesia) ROS Narrative System reviewed and no additional complaints, except as documented.
--- NOTE | 2025-05-22 12:15 | CONE_PTH ---
PATIENT: FRANCY DEE [place] [facility] [place][id number] AGE/SX: 30/F ROOM: RE05/22/[address]: Dr. Keila Thompson, MDDOB: 1995 BED: DIS: 05/22/2025 SPEC #: [id number] RECD: 05/22/25 13:49 STATUS: RIMMA KODY #: [id number] VIKRAM: 05/22/25 12:[address]: Keila Thompson DEPT: SURGICAL PATHOLOGY RECD BY: Amos Gracia ENTERED: 05/22/25 15:07 SP TYPE: Leep Cone HARINI DR: Celia Primary Care Phys Tissues: A - UTERINE CERVIX LEEP B - Endocervical Procedures: Immunohistochemical Stains Surgery Specimen Level IV Surgery Specimen Level V HEADER OPERATION: Leep Cone PRE-OP DIAGNOSIS: DREW I, HGSIL TISSUE SUBMITTED: A- Ectocervix, B- Endocervical MICROSCOPIC DIAGNOSIS A. 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 - IHC for p16 shows block positivity in the dysplastic mucosa. - Surgical margins free. B. Endocervix, curettage: - Fragments of lower uterine segment. - Scant benign endocervical and squamous mucosa. - Negative for dysplasia/malignancy. MICROSCOPIC DESCRIPTION Slides are reviewed. All matched controls reacted appropriately. These tests were developed and their performance characteristics determined by [facility]. They may not have been cleared or approved by the [place]. Food and Drug Administration. The FDA has determined that such clearance or approval is not necessary.? The above immunohistochemical/dualISH?markers are reviewed by the Pathologist. GROSS DESCRIPTION Received in 2 formalin containers labeled with the patient's name and date of . Designated as: A. Ectocervix are multiple irregular, cauterized tissue fragments and mucoid material, 3.1 x 2.4 x 0.7 cm in aggregate. The specimen is devoid of orientation. Each piece is surfaced by damon-pink to red apparent mucosa. The cauterized aspects of the tissue fragments are inked black. The specimen is serially sectioned revealing focal mucoid containing cysts. The specimen is entirely submitted in 5 cassettes to include the mucoid material and on inked tissue fragments in cassette A5. B. Endocervical is a 1.4 x 0.5 x 0.1 cm aggregate of mucoid material and flecks of pink-red tissue. Entirely submitted in 1 cassette. KS 05/22/2025 CPT:43656,80713,49048
--- NOTE | 2025-05-22 12:55 | OP.PCM_ITS ---
Operative Report (Standard) Operative Information Date of Procedure: 05/22/25 Pre-Operative Diagnosis: cervical dysplasia, CIN2 Post-Operative Diagnosis: same Surgery/Procedure Performed: LEEP grinder outside diameter: No Type of Anesthesia: Local and MAC RN Documented Start/Stop Times: Operation Date: 05/22/25 12:15 Case Time Into Pre-Op 05/22/25 10:31 Select all DRAINS/GRAFTS/IMPLANTS that apply: None Specimen collected: Yes Description of specimen(s) removed: Cervix- cut edge 12:00, ECC Description of surgery: After informed consent was obtained patient was taken to the operating room she was placed in supine position she was given anesthesia. She was then placed in the yellow fin stirrups. At this time under sterile technique the bladder was drained approximately 50 cc of clear yellow urine was expelled. At this time rubber coated speculum was placed. Good visualization of the cervix. Lidocaine with epinephrine was injected in a circumferential fashion around the cervix performed a paracervical block. Legal solution was then applied. The anterior aspect there appeared to be an area that did not obtain stained. [2] cm loop electrode was used to perform the LEEP procedure. First an anterior LEEP was performed on the cervix. Then a posterior LEEP. Good hemostasis was appreciated. Endocervical curettings was performed. Next the rollerball was used for hemostasis. No comp occasions with this procedure. Specimens were sent to pathology for evaluation. Instrument and lap count were correct times 2. I anticipate a normal postoperative course. Surgical Findings: normal appearing cervix Complications Complications: No Admit VTE Documentation VTE Present on Admission: Yes VTE Mechan Device Prophylaxis: SCD's Reason prophylaxis not ordered: Treatment Not Indicated
--- NOTE | 2025-05-22 12:55 | PCM.OPRPT ---
Operative Report (Standard) Operative Information Date of Procedure: 05/22/25 Pre-Operative Diagnosis: cervical dysplasia, CIN2 Post-Operative Diagnosis: same Surgery/Procedure Performed: LEEP sales technician home theater: No Type of Anesthesia: Local and MAC RN Documented Start/Stop Times: Operation Date: 05/22/25 12:15 Case Time Into Pre-Op 05/22/25 10:31 Procedure Start Time: 13:04 Procedure Stop Time: 13:14 Select all DRAINS/GRAFTS/IMPLANTS that apply: None Special Medications: 1% lidocaine with epinephine Estimated Blood Loss: <5 Fluids Replaced: 800 Specimen collected: Yes Description of specimen(s) removed: Ectocervix (came out in 3 pieces) , ECC Description of surgery: After informed consent was obtained patient was taken to the operating room she was placed in supine position she was given anesthesia. At this time rubber coated speculum was placed. Good visualization of the cervix. 10cc Lidocaine with epinephrine was injected in a circumferential fashion around the cervix performed a paracervical block. Lugal solution was then applied. large steel loop electrode was used to perform the LEEP procedure. The ectocervix came out in two pieces - at the end i did use the loop to remove a small section on the right side. Good hemostasis was appreciated. Endocervical curettings was performed. Next the rollerball was used for hemostasis. [place] then applied No complications with this procedure. Specimens were sent to pathology for evaluation. Instrument and lap count were correct times 2. I anticipate a normal postoperative course. Surgical Findings: normal appearing cervix Complications Complications: No Admit VTE Documentation VTE Present on Admission: Yes VTE Mechan Device Prophylaxis: SCD's Reason prophylaxis not ordered: Treatment Not Indicated
[2025-05-22] MEDS: Lidocaine 1%/Epi 1:200 (30ml) 30 ML AMPUL (13:08)
[2025-05-22] MEDS: Iodine/Potassium Iodide 14ML Bottle 1 DRP TOPICAL (13:08)
[2025-05-22] MEDS: FERRIC SUBSULFATE 8 GM SOLN (13:08)
--- NOTE | 2025-05-22 13:31 | PCM.POST.ANE ---
Anesthesia: Postop Eval I Current Vital Signs Temperature: 97.2 F Pulse Rate: 86 Blood Pressure: 131/87 Respiratory Rate: 16 Pulse Ox: 96 Oxygen Delivery Method: Room Air Assessment Airway patent: Yes Spontaneous unlabored respirations: Yes Mental status: Awake and Calm nausea: No Vomiting: No Anesthesia Complication: No Fluid Hydration Crystalloid volume administer (ml): 800 Total IV fluid infused: 800 Progress Note Anesthesia document: Postop Eval 1 completed: Yes
[2025-05-22] MEDS: HYDROcodone Bitartrate/Apap 5/325 Tablet PO (13:58)
--- NOTE | 2025-05-22 15:37 | POSTOPAN2_ITS ---
Anesthesia Postop Eval I Sum Postop Eval Completion status Anesthesia document: Postop Eval 1 completed: Yes Anesthesia Postop Eval I Summary Anesthesia Postop Eval I Summary: Anesthesia Postop Eval I: Assessment Summary Airway patent Yes 05/22/25 13:32 BARREL HANDLER.[email or web address] Spontaneous unlabored Yes 05/22/25 13:32 BARREL HANDLER.[email or web address] respirations Mental status Awake,Calm 05/22/25 13:32 BARREL HANDLER.[email or web address] nausea No 05/22/25 13:32 BARREL HANDLER.[email or web address] Vomiting No 05/22/25 13:32 BARREL HANDLER.[email or web address] Anesthesia Postop Eval I: Fluid Summary Crystalloid volume administer 800 05/22/25 13:32 BARREL HANDLER.[email or web address] (ml) Colloids volume administered ( ml) Blood Product volume administered (ml) Total IV fluid infused 800 05/22/25 13:32 BARREL HANDLER.[email or web address] Anesthesia Postop Eval I: Summary Notes Anesthesia Complication No 05/22/25 13:32 BARREL [email or web address].[email or web address] Anesthesia Complication Comment: Post-operative progress note Anesthesia: Postop Eval II Evaluation Mental status: Awake and Calm Pain Level: 1 nausea: No Vomiting: No Complications Anesthesia Complication: No
--- NOTE | 2025-05-22 15:37 | PCM.POSTANE2 ---
Anesthesia Postop Eval I Sum Postop Eval Completion status Anesthesia document: Postop Eval 1 completed: Yes Anesthesia Postop Eval I Summary Anesthesia Postop Eval I Summary: Anesthesia Postop Eval I: Assessment Summary Airway patent Yes 05/22/25 13:32 RUBBER VULCANIZING MACHINE OPERATOR.[email or web address] Spontaneous unlabored Yes 05/22/25 13:32 RUBBER VULCANIZING MACHINE OPERATOR.JOSUÉ respirations Mental status Awake,Calm 05/22/25 13:32 RUBBER VULCANIZING MACHINE OPERATOR.[email or web address] nausea No 05/22/25 13:32 RUBBER VULCANIZING MACHINE OPERATOR.[email or web address] Vomiting No 05/22/25 13:32 RUBBER VULCANIZING MACHINE OPERATOR.[email or web address] Anesthesia Postop Eval I: Fluid Summary Crystalloid volume administer 800 05/22/25 13:32 RUBBER VULCANIZING MACHINE OPERATOR.ABBEYOBY (ml) Colloids volume administered ( ml) Blood Product volume administered (ml) Total IV fluid infused 800 05/22/25 13:32 RUBBER VULCANIZING MACHINE OPERATOR.JOSUÉ Anesthesia Postop Eval I: Summary Notes Anesthesia Complication No 05/22/25 13:32 RUBBER VULCANIZING MACHINE OPERATOR.JOSUÉ Anesthesia Complication Comment: Post-operative progress note Anesthesia: Postop Eval II Evaluation Mental status: Awake and Calm Pain Level: 1 nausea: No Vomiting: No Complications Anesthesia Complication: No
== END 2025-05-22 14:19 | disposition home or self-care (01) ==
LOC: SDC 10:27 → AC 10:28
PROVIDERS: Referring Provider Obstetrics & Gynecology; Visit Provider Obstetrics & Gynecology
PROC: 0UBC7ZZ Excision of Cervix, Via Natural or Artificial Opening (ICD-10-PCS; CPT 57522; principal; 2025-05-22 12:00)
DX: N87.1 Moderate cervical dysplasia (principal); F17.210 Nicotine dependence, cigarettes, uncomplicated; Z98.51 Tubal ligation status
CPT/HCPCS: 57522; 00940; 81025; 88305; 88307; 88342; J2405